=== PATIENT | male | born 1955 | race Caucasian/White ===

== ENCOUNTER 2024-06-28 00:35 | Day surgery (SDC) | payer BC, SELFPAY ==
[2024-06-21 10:41] VITALS: BMI 32.0
--- OUTSIDE RECORDS SUMMARY | 2024-06-28 00:38 | XMS_ITS | Clinical Summary ---
Author Organization [facility] Heriberto abundio Patino Address [address] [place] [address] Care Team Providers Care Credit Analyst Name Role Phone Unavailable Primary Care Provider Unavailabl e Allergies No known active allergies Medications ursodioL (ACTIGALL) 300 mg capsule 4 capsules po qday 01/23/2024 Active cholecalciferol , Vitamin D3, 50 mcg (2,000 unit) Tablet Take 2,000 Units by mouth daily. Active ascorbic acid (VITAMIN C) 500 mg Tablet, Chewable Take 500 mg by mouth daily. Active Active Problems No known active problems Encounters Date Type Department Care Team Description 06/25/2024 Abstract [facility] Oncology and Hematology [facility] [address] [place] [id number] Semaj Gaona MD 06/19/2024 External Device Data ST[facility] ABSTRACTION Provider, Abstract 06/19/2024 External Device Data [facility] ABSTRACTION Provider, Abstract 06/19/2024 External Device Data [facility] ABSTRACTION Provider, Abstract 06/12/2024 11:30 AM CDT Office Visit [facility] H[facility] [address] [place] [id number] Briseida Sepulveda MD Other secondary thrombocytopenia (Primary Dx) from Last 3 Months Family History Medical History Relation Name Comments No Known Problems Brother 1 No Known Problems Brother 2 No Known Problems Brother 3 No Known Problems Father No Known Problems Mother Cancer Sister 1 No Known Problems Sister 2 No Known Problems Sister 3 Relation Name Status Comments Brother 1 Brother 2 Alive Brother 3 Alive Father Mother Sister 1 Alive Sister 2 Alive Sister 3 Alive Social History Tobacco Use Types Packs/Day Years Used Date Smoking Tobacco: Never Smokeless Tobacco: Never Tobacco Cessation:Counseling Given: Not Answered Alcohol Use Standard Drinks/Week Comments Yes 0 (1 standard drink = 0.6 oz pur e alcohol) occasional Sex and Gender Information Value Date Recorded Sex Assigned at Not on file Legal Sex Male 9:53 AM CDT Gender Identity Not on file Sexual Orientation Not on file Last Filed Vital Signs Vital Sign Reading Time Taken Comments Blood Pressure 106/65 06/12/2024 11:29 AM CDT Pulse 63 06/12/2024 11:29 AM CDT Temperature 36.3 C (97.4 F) 06/12/2024 11:29 AM CDT Respiratory Rate 16 06/12/2024 11:2 9 AM CDT Oxygen Saturation 96% 06/12/2024 11: 29 AM CDT Inhaled Oxygen Concentration - - Weight 95.2 kg (209 lb 12.8 oz) 025 11:29 AM CDT Height 172.7 cm (5' 8 ) 06/12/2024 11:2 9 AM CDT Body Mass Index 31.9 06/12/2024 11:29 AM CDT Plan of Treatment Upcoming Encounters Date Type Department Care Team (Late st Contact Info) Description 12/11/2024 11:00 AM CDT Office Visit [facility] Oncology and Hematology [facility] [address] [facility] [address] [place] [address] Semaj Gaona MD [address] [place] [address] Health Maintenance Due Date Last Done Comments Pre-Diabetes and Diabetes Screening 1955 DTAP/TDAP/TD VACCINES (1 - Tdap) 01/13/1975 PNEUMOCOCCAL VACCINE 50+ YEA RS (1 of 2 - PCV) 01/13/1975 COLORECTAL SCREENING 01/13/2001 Colorectal Cancer Screening 01/13/2001 FIT-DNA Q 3 years 01/13/2001 FIT/FOBT Q 1 year 01/13/2001 Flex Sig/CT Colonography Q 5 years 01/13/2001 RSV VACCINE (60+ or ) (1 - Risk 60-74 years 1-dose series) 2016 INFLUENZA VACCINE (#1) 2023 ZOSTER VACCINE Completed 02/22/2019, 09/21/2018 Insurance BLUE [employer]/TRUE BLUE PPO
--- OUTSIDE RECORDS SUMMARY | 2024-06-28 00:38 | XMS_ITS | Clinical Summary ---
Author Organization [facility] Address [address] [place] [address] Care Team Providers Care Script Editor Name Role Phone Douglas Francois MD Primary Care Provider [phone] Source Comments [facility],non-owned Affiliates and Associated Physician Practices is amultiple site organization consisting of ambulatory clinics and hospital sitesin [place], [place], [place] and [place]. This disclosure is being madepursuant to the Care Everywhere program and may not contain all information available regarding this patient. 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 Gender Identity Not on file Sexual Orientation Not on file Plan of Treatment Health Maintenance Due Date Last Done Comments COLOGUARD (AGES 45-75) - COL ON CA SCREENING 1955 COLON MONITORING 1956 COLONOSCOPY - COLON CA SCREENING 1956 CT COLONOGRAPHY - COLON CA SCREENING 1956 Colorectal Cancer Screening 1956 FIT - COLON CA SCREENING 1956 FLEX SIG - COLON CA SCREENING 1956 LIPID TESTING 1956 HEPATITIS C SCREENING 01/09/1974 DTAP/TDAP/TD VACCINES (1 - Tdap) 01/13/1975 PNEUMOCOCCAL VACCINE 50+ (1 of 1 - PCV) 01/13/2006 ZOSTER VACCINE (1 of 2) 01/13/2006 HEPATITIS B VACCINE (2 of 3 - Risk 3-dose series) 07/27/2017 06/29/2017 COVID-19 VACCINE (1 - 2023-2 5 season) 2023 DEPRESSION SCREENING 02/15/2024 INFLUENZA VACCINE (Season Ended) 2024 Respiratory Syncytial Virus (RSV) Vaccine Pt: or over 60 yrs (1 - 1-dose 75+ series) 01/13/2031 HIB VACCINE Aged Out No longer eligi ble based on patient's age to complete this topic HPV VACCINE Aged Out No longer eligi ble based on patient's age to complete this topic MENINGOCOCCAL (Group B) VACC INE SHARED DECISION-MAKING Aged Out No longer eligibl e based on patient's age to complete this topic MENINGOCOCCAL GROUPS A/C/Y/W VACCINE Aged Out No longer eligible b ased on patient's age to complete this topic Insurance ANTHEM ANTHEM Care Teams Script Editor Relationship Specialty Start Date End Date Douglas Francois MD [address] [place] [address] PCP - General 04/06/13
--- OUTSIDE RECORDS SUMMARY | 2024-06-28 00:39 | XMS_ITS | Clinical Summary ---
Author Organization [facility] Address [address] [place] [address] Care Team Providers Care Associate Media Director Name Role Phone Roz Montiel MD Primary Care Provide r Allergies Active Allergy Reactions Criticality Noted Date Comments No Known Allergies Other (See comments) Low Reaction: Medications calcium carbonate-vitami n D3 1,250mg (500mg elemental) - 5 mcg (200 units) per tablet pt doesnt know dosage of med, takes 1 tab daily Active cholecalciferol (VITAMIN D-3) 2,000 unit tablet pt doesnt know med dosage, states that he takes 1 tab daily Active cyclobenzaprine (FLEXERIL) 10 mg tablet [address] (VOLTAREN) 75 mg EC tablet 8 Active ascorbic acid (ascorbic acid with charles hips) 500 mg tablet,chewable 1 tablet/chew tab (500 mg total) Active biotin 5,000 mcg tablet,disintegr ating 1 tablet Active ursodioL (ACTIGALL) 300 mg capsuleIndicatio ns: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 [facility] [address] [place] [address] [place] [address] Melanie Hill CMA 04/11/2024 Telephone [facility] Gastroenterology [address] [facility] [address] [place] [address] [place] [id number] Melanie Hill CMA from Last 3 Months Immunizations Immunization Administration Dates Next Due Hep B Vaccine 06/29/2017,01/06/2017,12/01/2016 ZOSTER Recombinant 02/22/2019,09/21/2018 Surgical History Surgery Date Site/Laterality Comments SC COLONOSCOPY FLX DX W/SASHA J SPEC WHEN PFRMD Colonoscopy (Fiberoptic) - (Added by TW Conv) Medical History Medical History Date Comments Personal history of diseases of skin or subcutaneous tissue History of psoriasis - (Adde d by TW Conv) Personal history of other in fectious and parasitic diseases History of hepatitis A - (Ad ded by TW Conv) Family History Medical History Relation Name Comments Lung cancer Father Family history of lung cancer - (Added by TW Conv) Colon cancer Mother Family history of colon cancer - (Added by TW Conv) Lung cancer Mother Family history of lung cancer - (Added by TW Conv) Asthma Sister 1 Family history of asthma - (Added by TW Conv) Autoimmune disease Sister 2 Family hi story of autoimmune disorder - (Added by TW Conv) Relation Name Status Comments Father Mother Sister 1 Sister 2 Social History Tobacco Use Types Packs/Day Years Used Date Smoking Tobacco: Never Smokeless Tobacco: Never Tobacco Cessation:Counseling Given: Not Answered Sex and Gender Information Value Date Recorded Sex Assigned at Not on file Legal Sex Male 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 Gender Identity Not on file Sexual Orientation Not on file Obstetrics History Last Filed Vital Signs Vital Sign Reading Time Taken Comments Blood Pressure 121/80 10/20/2023 11:22 AM CDT Pulse 59 10/20/2023 11:22 AM CDT Temperature 36.6 C (97.9 F) 10/20/2023 11:22 AM CDT Respiratory Rate - - Oxygen Saturation 97% 10/21/2022 10:07 AM CDT Inhaled Oxygen Concentration - - Weight 96.9 kg (213 lb 9.6 oz) 10/20/2023 11:22 AM CDT Height 172.7 cm (5' 8 ) 10/20/2023 11:22 AM CDT Body Mass Index 32.48 10/20/2023 11:22 AM CDT Plan of Treatment Health Maintenance Due Date Last Done Comments Colon Cancer Screening-Colonoscopy 1955 Depression Screening 1956 Fall Risk Assessment 1955 Hepatitis C Screening 1955 Prostate Cancer Screening-PSA 1956 DTaP/Tdap/Td Vaccine (1 - Tdap) 01/13/1967 Pneumococcal vaccine 65+ (1 of 2 - PCV) 01/13/1975 Well Visit 65+ 01/13/2021 Influenza Vaccine (Season Ended) 2024 Zoster Vaccine Completed 02/22/2019, 09/21/2018 Insurance [place] [employer] [place] [employer] [place] [facility] Address: [address] [address] [place] [address] [facility] Care Teams Associate Media Director Relationship Specialty Start Date End Date Roz Montiel MD [phone] [address] PCP - General Internal Medicine 10/20/23
--- OUTSIDE RECORDS SUMMARY | 2024-06-28 00:39 | XMS_ITS | Data Portability ---
Author Organization [place] - [facility] [employer], Main Office Address [address] [place] [address] Care Team Providers Care I O Psychologist Name Role Phone NIKKI KUO Primary Care Provider NIKKI KUO Referring Provider [phone] Assessment Encounter Date Assessment Date Assessment LastModified by Organization Details LastModified Time 11/08/2023 11/08/2023 10/20/2023: Dr Treviño GI PLT 146 Not available 11/08/2023 16:41:33 03/13/2024 03/13/2024 10/20/2023: Dr Treviño GI PLT 146 11/16/2023: PSA 3.12 Gluc 101 PLT 131 Not available 03/13/2024 11:01:03 06/12/2024 06/12/2024 10/20/2023: Dr Treviño GI PLT 146 11/16/2023: PSA 3.12 Gluc 101 PLT 131 Not available 06/12/2024 10:50:06 Plan of Treatment Reminders Order Date Submit Date Provider Last Modified By Organization Details Last Modified Time Details Appointments Any 15 2024 09:30A eGovanna palomino MD Not available Not available Not available Lab lipid panel, serum 2024 025 [email or web address] [facility] (Lab), [address] [place], [address], 06/21/2024 14:17:04 CBC w/ auto diff [email or web address] [place] [address] (Lab), [address] [place], [address], 06/21/2024 14:17:13 CMP, serum or plasma [address] (Lab), [address] [place], [address], 06/21/2024 14:17:22 CMP, serum or plasma [address] (Lab), [address] [place], [address], 06/21/2024 14:17:31 vitamin D, 25-hydrox y, total, serum [address] (Lab), [address] [place], [address], 06/21/2024 14:17:41 vitamin B12 + folate, serum or blood [address] (Lab), [address] [place], [address], 06/21/2024 14:17:50 lipid panel, serum 2024 025 [facility] (Lab), [address] [place], [address], 03/21/2024 16:41:59 CBC w/ auto diff 2024 025 [facility] (Lab), [address] [place], [address], 03/21/2024 17:03:37 CMP, serum or plasma 2024 025 [facility] (Lab), [address] [place], [address], 03/21/2024 16:42:01 CMP, serum or plasma [address] (Lab), [address] [place], [address], 04/05/2024 14:26:27 PSA, total, serum or plasma 2024 025 [facility] (Lab), [address] [place], [address], 03/21/2024 17:20:03 vitamin D, 25-hydrox y, total, serum [address] (Lab), [address] [place], [address], 04/05/2024 14:26:27 vitamin B12 + folate, serum or blood [address] (Lab), [address] [place], [address], 04/05/2024 14:26:28 lipid panel, serum 2023 024 [facility] (Lab), [address] [place], [address], 11/24/2023 16:56:59 CBC w/ auto diff 2023 024 [facility] (Lab), [address] [place], [address], 11/24/2023 16:23:01 CMP, serum or plasma [address] (Lab), [address] [place], [address], 11/30/2023 08:23:16 CMP, serum or plasma 2023 024 [facility] (Lab), [address] [place], [address], 11/24/2023 16:24:20 PSA, total, serum or plasma 2023 024 [facility] (Lab), [address] [place], [address], 11/24/2023 16:57:25 vitamin D, 25-hydrox y, total, serum [address] (Lab), [address] [place], [address], 11/30/2023 08:23:17 vitamin B12 + folate, serum or blood [address] (Lab), [address] [place], [address], 11/30/2023 08:23:17 Referral urologist referral - Please call patient to schedule an appointme nt. Thank you. 2024 025 CRISTINA Caballero MD, [address] [facility] [address], [place], [address], 06/19/2024 10:08:17 hematolog ist referral - Please call patient to schedule an appointme nt. Thank you. 2024 025 CRISTINA Gaona MD, [address], [place], [address], 06/19/2024 11:24:06 dermatolo gist referral - Please call patient to schedule an appointme nt. Thank you. 2024 025 [facility], [address] [place] [address], [address], 06/19/2024 10:31:00 hematolog ist referral - Please call patient to schedule an appointme nt. Thank you. 2024 025 [email or web address] Gaona MD, [address], [place], [address], 05/22/2024 08:45:54 cardiolog ist referral - Please call patient to schedule an appointme nt. Thank you. 2024 025 [place], [address], [address], [place], [address], 04/23/2024 20:13:58 dermatolo gist referral - Please call patient to schedule an appointme nt. Thank you. 2024 025 [email or web address] [address] [facility], [facility] [place], [address], 05/22/2024 08:41:08 cardiolog ist referral - Please call patient to schedule. 2023 024 [place], [address], [address], [place], [address], 11/10/2023 16:23:09 Procedures colonosco py screening (PROC) - Please call patient to schedule an appointme nt. Thank you. 2024 025 [facility], [address], [place], [place], [address], 06/22/2024 16:06:06 upper endoscopy procedure (EGD) (PROC) - Please call patient to schedule an appointme nt. Thank you. 2024 025 [facility], [address], [place], [address], 06/22/2024 16:05:19 colonosco py screening (PROC) - Please call patient to schedule an appointme nt. Thank you. 2024 025 [facility] Trung Aaron DO, [address], [address], [place], [address], 05/02/2024 12:55:26 upper endoscopy procedure (EGD) (PROC) 2024 025 [facility] Trung Gregorio Galen MATIAS, [address], [place], [address], 04/23/2024 17:12:10 colonosco py screening (PROC) 2023 024 [email or web address] [facility], [address], [place], [address], 05/07/2024 08:43:27 upper endoscopy procedure (EGD) (PROC) 2023 024 [email or web address] [facility], [address], [place], [address], 06/04/2024 08:45:27 Surgeries None recorded. Imaging DEXA, axial skeleton [address] ([facility]), [address] [place], [address], 06/12/2024 18:10:00 DEXA, axial skeleton [address] ([facility]), [address] [place], [address], 03/13/2024 12:51:45 DEXA, axial skeleton 2023 024 [facility] ([facility]), [address] [place], [address], 11/16/2023 11:31:51 Medication Orders None recorded. Patient TargetsNo targets recorded. Patient Instructions Encounter Date Encounter Id Patient Instructions Last Modified By Organization Details Last Modified Time 04/11/2024 [id number] 1. We will send his urine off today for Exosome test and once the results come back then we will arrange either office visit or telehealth discuss results 2. Most likely he will not need a prostate biopsy [email or web address] Not available 04/11/2024 12:41:56 Reason for Referral Anatomic Pathology Manager Referral for Sc reening for cardiovascular system disease Please call patient to schedule. Referring Physician: Nikki Kuo Internal Medicine, Encounter Date: 11/08/2023 Anatomic Pathology Manager Referral for Sc reening for cardiovascular system disease Please call patient to schedule an appointment. Thank you. Referring Physician: Nikki Kuo Internal Medicine, Encounter Date: 03/13/2024 Director Veterinary Referral for S kin lesion Please call patient to schedule an appointment. Thank you. Referring Physician: Nikki Kuo Internal Medicine, Encounter Date: 03/13/2024 Please call patient to sched ule an appointment. Thank you. Referring Physician: Nikki Kuo Internal Medicine, Encounter Date: 03/13/2024 Director Veterinary Referral for S kin lesion Please call patient to schedule an appointment. Thank you. Referring Physician: Nikki Kuo Internal Medicine, Encounter Date: 06/12/2024 Please call patient to sched ule an appointment. Thank you. Referring Physician: Nikki Kuo Internal Medicine, Encounter Date: 06/12/2024 Urologist Referral for Prost ate specific antigen above reference range Please call patient to schedule an appointment. Thank you. Referring Physician: Nikki Kuo Internal Medicine, Encounter Date: 06/12/2024 Results Created Date Observation Date Name Description Value Unit Range Abnormal Flag Note LastModifiedBy Organization Detail LastModifiedTime 01/20/20 22 01/19/2022 LIPID PANEL cholesterol 152 mg/dL 140-19 9 NIH ADELSO NSUS RECOM MENDA TION FOR SUMIT STERO L: ADULT CHILD LOW RISK: <200 <170 BORDE RLINE : <200- 239 ----- HIGH RISK: >240 >200 Not Available [facility] (Lab) [address] [place], [address], 01/19/2022 21:43:05 01/20/20 22 01/19/2022 LIPID PANEL triglyceride s 69 mg/dL 0-150 NIH ADELSO NSUS REPOR T RECOM MENDA TION FOR TRIGL YCERI GORAN: ADULT CHILD LOW RISK: <150 ----- BODER LINE: 150-1 99 ----- HIGH RISK: >200 ----- Not Available [facility] (Lab) [address] [place], [address], 01/19/2022 21:43:05 01/20/20 22 01/19/2022 LIPID PANEL HDL cholesterol 44 mg/dL 40- Not Available [facility] (Lab) [address] [place], [address], 01/19/2022 21:43:05 01/20/20 22 01/19/2022 LIPID PANEL LDL cholesterol, calculated 94 mg/dL 0-130 NIH ADELSO NSUS REPOR T RECOM MENDA TIONS FOR LDL: ADULT CHILD LOW RISK <130 <110 (OPTI MAL LDL) <100 ----- BORDE RLINE : 130-1 59 ----- HIGH RISK: >160 >130 A TRIGL YCERI DE RESUL T >400 INVAL IDATE S THE CALCU LATIO N FOR LDL FRACT IONAT ION - THE LDL RESUL T WILL NOT BE REPOR CHIDI. Not Available [facility] (Lab) [address] [place], [address], 01/19/2022 21:43:05 01/20/20 22 01/19/2022 BASIC METAB OLIC PANEL sodium 140 mmol/ L 137-14 5 Not Available [facility] (Lab) [address] [place], [address], 01/19/2022 21:43:04 01/20/20 22 01/19/2022 BASIC METAB OLIC PANEL potassium 3.8 mmol/ L 3.5-5. 1 Not Available [facility] (Lab) [address] [place], [address], 01/19/2022 21:43:04 01/20/20 22 01/19/2022 BASIC METAB OLIC PANEL chloride 104 mmol/ L 98-107 Not Available [facility] (Lab) [address] [place], [address], 01/19/2022 21:43:04 01/20/20 22 01/19/2022 BASIC METAB OLIC PANEL carbon dioxide 29 mmol/ L 22-30 Not Available [facility] (Lab) [address] [place], [address], 01/19/2022 21:43:04 01/20/20 22 01/19/2022 BASIC METAB OLIC PANEL anion gap 10.8 mmol/ L 14-22 low Not Available [facility] (Lab) [address] [place] [address] [place], [address], 01/19/2022 21:43:04 01/20/20 22 01/19/2022 BASIC METAB OLIC PANEL glucose 118 mg/dL 70-99 high Not Available [facility] (Lab) [address] [place], [address], 01/19/2022 21:43:04 01/20/20 22 01/19/2022 BASIC METAB OLIC PANEL BUN 19 mg/dL 8-19 Not Available [facility] (Lab) [address] [place], [address], 01/19/2022 21:43:04 01/20/20 22 01/19/2022 BASIC METAB OLIC PANEL creatinine 0.96 mg/dL 0.66-1 .25 Not Available [facility] (Lab) [address] [place] [address], [address], 01/19/2022 21:43:04 01/20/20 22 01/19/2022 BASIC METAB OLIC PANEL GFR >60 Refer ence Range : [place] ge GFR Healt hy Adult : >60 mL/mi n/1.7 3 m2 Chron ic Kidne y Disea se: 15-60 mL/mi n/1.7 3 m2 Kidne y Failu re: <15/m L/min /1.73 m2 www.n iddk. nih.g ov The MDRD study equat ion has not been valid ated in child jethro <18 years of age; pregn ant women ; the elder ly >85 years of age; or in some racia l or ethni c subgr oups, such as Hispa nics. Outsi de the valid ated kenneth eters , estim ated GFR is less accur ate, requi ring clini camilla judgm ent on a case- by-ca se basis . Clini camilla inter preta tion for other races and ages must be made by the clini sade. The MDRD study equat ion has not been valid ated for the evalu ation of serum creat inine relat ed to nutri humberto l statu s or medic ation usage . For perso ns <18 years of age, a pedia tric GFR calcu lator is avail able on the [facility] websi te: https :[email or web address] [email or web address] [email or web address].o rg/pr ofess ional s/kdo qi/gf r_cal culat or Not Available [facility] (Lab) [address] [place], [address], 01/19/2022 21:43:04 01/20/20 22 01/19/2022 BASIC METAB OLIC PANEL calcium 8.9 mg/dL 8.4-10 .2 Not Available [facility] (Lab) [address] [place], [address], 01/19/2022 21:43:04 11/16/19 24 11/16/2023 CBC/C OMPLE TE BLD COUNT W/DIF F white blood cells 5.8 x10'3 /uL 4.2-10 .8 Not Available [facility] (Lab) [address] [place], [address], 11/16/2023 11:27:57 11/16/19 24 11/16/2023 CBC/C OMPLE TE BLD COUNT W/DIF F red blood cells 4.39 x10'6 /uL 4.10-5 .80 Not Available [facility] (Lab) [address] [place], [address], 11/16/2023 11:27:57 11/16/1911/16/2023 CBC/C OMPLE TE BLD COUNT W/DIF F hemoglobin 14.3 g/dL 13.2-1 7.0 Not Available [facility] (Lab) [address] [facility] [place], [address], 11/16/2023 11:27:57 11/16/1911/16/2023 CBC/C OMPLE TE BLD COUNT W/DIF F hematocrit 42.4 % 39.3-5 0.0 Not Available [facility] (Lab) [address] [place], [address], 11/16/2023 11:27:57 11/16/1911/16/2023 CBC/C OMPLE TE BLD COUNT W/DIF F mean red cell volume 96.6 fL 80.0-9 7.0 Not Available [facility] (Lab) [address] [place], [address], 11/16/2023 11:27:57 11/16/1911/16/2023 CBC/C OMPLE TE BLD COUNT W/DIF F mean red cell hemoglobin 32.6 pg 27.0-3 3.0 Not Available [facility] (Lab) [address] [place], [address], 11/16/2023 11:27:57 11/16/1911/16/2023 CBC/C OMPLE TE BLD COUNT W/DIF F mean RBC HGB concentratio n 33.7 g/dL 31.0-3 6.0 Not Available [facility] (Lab) [address] [place], [address], 11/16/2023 11:27:57 11/16/1911/16/2023 CBC/C OMPLE TE BLD COUNT W/DIF F red cell distribution width 12.1 % 11.8-1 5.5 Not Available [facility] (Lab) [address] [place], [address], 11/16/2023 11:27:57 11/16/1911/16/2023 CBC/C OMPLE TE BLD COUNT W/DIF F platelets 131 x10'3 /uL 150-40 0 low Not Available [facility] (Lab) [address] [place], [address], 11/16/2023 11:27:57 11/16/1911/16/2023 CBC/C OMPLE TE BLD COUNT W/DIF F mean platelet volume 9.8 fL 9.0-12 .4 Not Available [facility] (Lab) [address] [place], [address], 11/16/2023 11:27:57 11/16/1911/16/2023 CBC/C OMPLE TE BLD COUNT W/DIF F neutrophils 67.4 % 39.0-7 2.0 Not Available [facility] (Lab) [address] [place], [address], 11/16/2023 11:27:57 11/16/1911/16/2023 CBC/C OMPLE TE BLD COUNT W/DIF F lymphocytes 19.7 % 16.0-4 7.0 Not Available [facility] (Lab) [address] [place], [address], 11/16/2023 11:27:57 11/16/1911/16/2023 CBC/C OMPLE TE BLD COUNT W/DIF F monocytes 9.6 % 5.0-12 .0 Not Available [facility] (Lab) [address] [place], [address], 11/16/2023 11:27:57 11/16/1911/16/2023 CBC/C OMPLE TE BLD COUNT W/DIF F eosinophils 2.7 % 1.0-7. 0 Not Available [facility] (Lab) [address] [place], [address], 11/16/2023 11:27:57 11/16/1911/16/2023 CBC/C OMPLE TE BLD COUNT W/DIF F basophils 0.3 % 0.0-2. 0 Not Available [facility] (Lab) [address] [place], [address], 11/16/2023 11:27:57 11/16/1911/16/2023 CBC/C OMPLE TE BLD COUNT W/DIF F immature granulocytes 0.3 % 0.00-0 .50 Not Available [facility] (Lab) [address] [place], [address], 11/16/2023 11:27:57 11/16/1911/16/2023 CBC/C OMPLE TE BLD COUNT W/DIF F neutrophils, absolute count 3.93 x10'3 /uL 1.5-8. 0 Not Available [facility] (Lab) [address] [place], [address], 11/16/2023 11:27:57 11/16/1911/16/2023 CBC/C OMPLE TE BLD COUNT W/DIF F lymphocytes, absolute count 1.15 x10'3 /uL 1.07-3 .43 Not Available [facility] (Lab) [address] [place], [address], 11/16/2023 11:27:57 11/16/1911/16/2023 CBC/C OMPLE TE BLD COUNT W/DIF F monocytes, absolute count 0.56 x10'3 /uL 0.29-0 .99 Not Available [facility] (Lab) [address] [place], [address], 11/16/2023 11:27:57 11/16/1911/16/2023 CBC/C OMPLE TE BLD COUNT W/DIF F eosinophils, absolute count 0.16 x10'3 /uL 0.02-0 .53 Not Available [facility] (Lab) [address] [place], [address], 11/16/2023 11:27:57 11/16/1911/16/2023 CBC/C OMPLE TE BLD COUNT W/DIF F basophils, absolute count 0.02 x10'3 /uL 0.01-0 .08 Not Available [facility] (Lab) [address] [place], [address], 11/16/2023 11:27:57 11/16/1911/16/2023 CBC/C OMPLE TE BLD COUNT W/DIF F immature granulocytes ,absolute 0.02 x10'3 /uL 0.00-0 .05 Not Available [facility] (Lab) [address] [place], [address], 11/16/2023 11:27:57 11/16/1911/16/2023 CBC/C OMPLE TE BLD COUNT W/DIF F nucleated red blood cells 0.0 % -0 Not Available [facility] (Lab) [address] [place], [address], 11/16/2023 11:27:57 11/16/1911/16/2023 CBC/C OMPLE TE BLD COUNT W/DIF F NRBC# 0.00 x10'3 /uL Not Available [facility] (Lab) [address] [place], [address], 11/16/2023 11:27:57 11/16/1911/16/2023 LIPID PANEL cholesterol 136 mg/dL 140-19 9 low NIH ADELSO NSUS RECOM MENDA TION FOR SUMIT STERO L: ADULT CHILD LOW RISK: <200 <170 BORDE RLINE : <200- 239 ----- HIGH RISK: >240 >200 Not Available [facility] (Lab) [address] [place], [address], 11/16/2023 11:35:37 11/16/1911/16/2023 LIPID PANEL triglyceride s 93 mg/dL 0-150 NIH ADELSO NSUS REPOR T RECOM MENDA TION FOR TRIGL YCERI GORAN: ADULT CHILD LOW RISK: <150 ----- BODER LINE: 150-1 99 ----- HIGH RISK: >200 ----- Not Available [facility] (Lab) [address] [place], [address], 11/16/2023 11:35:37 11/16/1911/16/2023 LIPID PANEL HDL cholesterol 42 mg/dL 40- Not Available [facility] (Lab) [address] [place], [address], 11/16/2023 11:35:37 11/16/1911/16/2023 LIPID PANEL LDL cholesterol, calculated 75 mg/dL 0-130 NIH ADELSO NSUS REPOR T RECOM MENDA TIONS FOR LDL: ADULT CHILD LOW RISK <130 <110 (OPTI MAL LDL) <100 ----- BORDE RLINE : 130-1 59 ----- HIGH RISK: >160 >130 A TRIGL YCERI DE RESUL T >400 INVAL IDATE S THE CALCU LATIO N FOR LDL FRACT IONAT ION - THE LDL RESUL T WILL NOT BE REPOR CHIDI. Not Available [facility] (Lab) [address] [place], [address], 11/16/2023 11:35:37 11/16/1911/16/2023 COMPR EHENS FIGUEROA METAB OLIC PANEL sodium 137 mmol/ L 137-14 5 Not Available [facility] (Lab) [address] [place], [address], 11/16/2023 11:35:55 11/16/1911/16/2023 COMPR EHENS FIGUEROA METAB OLIC PANEL potassium 4.3 mmol/ L 3.5-5. 1 Not Available [facility] (Lab) [address] [place], [address], 11/16/2023 11:35:55 11/16/19 24 11/16/2023 COMPR EHENS FIGUEROA METAB OLIC PANEL chloride 106 mmol/ L 98-107 Not Available [facility] (Lab) [address] [place], [address], 11/16/2023 11:35:55 11/16/19 24 11/16/2023 COMPR EHENS FIGUEROA METAB OLIC PANEL carbon dioxide 29 mmol/ L 22-30 Not Available [facility] (Lab) [address] [place], [address], 11/16/2023 11:35:55 11/16/19 24 11/16/2023 COMPR EHENS FIGUEROA METAB OLIC PANEL anion gap 6.3 mmol/ L 14-22 low Not Available [facility] (Lab) [address] [place], [address], 11/16/2023 11:35:55 11/16/1911/16/2023 COMPR EHENS FIGUEROA METAB OLIC PANEL glucose 101 mg/dL 70-99 high Not Available [facility] (Lab) [address] [place], [address], 11/16/2023 11:35:55 11/16/1911/16/2023 COMPR EHENS FIGUEROA METAB OLIC PANEL BUN 19 mg/dL 8-19 Not Available [facility] (Lab) [address] [place], [address], 11/16/2023 11:35:55 11/16/19 24 11/16/2023 COMPR EHENS FIGUEROA METAB OLIC PANEL creatinine 1.14 mg/dL 0.66-1 .25 Not Available [facility] (Lab) [address] [place], [address], 11/16/2023 11:35:55 11/16/1911/16/2023 COMPR EHENS FIGUEROA METAB OLIC PANEL GFR >60 Refer ence Range : [place] GFR Healt hy Adult : >60 mL/mi n/1.7 3 m2 Chron ic Kidne y Disea se: 15-60 mL/mi n/1.7 3 m2 Kidne y Failu re: <15/m L/min /1.73 m2 www.n iddk. nih.g ov The MDRD study equat ion has not been valid ated in child jethro <18 years of age; pregn ant women ; the elder ly >85 years of age; or in some racia l or ethni c subgr oups, such as Hispa nics. Outsi de the valid ated kenneth eters , estim ated GFR is less accur ate, requi ring clini camilla judgm ent on a case- by-ca se basis . Clini camilla inter preta tion for other races and ages must be made by the clini sade. The MDRD study equat ion has not been valid ated for the evalu ation of serum creat inine relat ed to nutri humberto l statu s or medic ation usage . For perso ns <18 years of age, a pedia tric GFR calcu lator is avail able on the [facility] websi te: https :[email or web address] [email or web address] [email or web address] rg/pr ofess ional s/kdo qi/gf r_cal culat or Not Available [facility] (Lab) [address] [place], [address], 11/16/2023 11:35:55 11/16/1911/16/2023 COMPR EHENS FIGUEROA METAB OLIC PANEL alkaline phosphatase 93 U/L 38-126 Not Available [facility] (Lab) [address] [place], [address], 11/16/2023 11:35:55 11/16/19 24 11/16/2023 COMPR EHENS FIGUEROA METAB OLIC PANEL alanine aminotransfe rase 21 U/L 0-50 Not Available [facility] (Lab) [address] [place], [address], 11/16/2023 11:35:55 11/16/1911/16/2023 COMPR EHENS FIGUEROA METAB OLIC PANEL aspartate aminotransfe rase 29 U/L 15-46 Not Available [facility] (Lab) [address] [place], [address], 11/16/2023 11:35:55 11/16/1911/16/2023 COMPR EHENS FIGUEROA METAB OLIC PANEL bilirubin, total 0.70 mg/dL 0.20-1 .30 Not Available [facility] (Lab) [address] [place], [address], 11/16/2023 11:35:55 11/16/19 24 11/16/2023 COMPR EHENS FIGUEROA METAB OLIC PANEL calcium 9.5 mg/dL 8.4-10 .2 Not Available [facility] (Lab) [address] [place], [address], 11/16/2023 11:35:55 11/16/1911/16/2023 COMPR EHENS FIGUEROA METAB OLIC PANEL total protein 6.5 g/dL 6.3-8. 2 Not Available [facility] (Lab) [address] [place], [address], 11/16/2023 11:35:55 11/16/1911/16/2023 COMPR EHENS FIGUEROA METAB OLIC PANEL albumin 3.9 g/dL 3.0-4. 4 Not Available [facility] (Lab) [address] [place], [address], 11/16/2023 11:35:55 11/16/19 24 11/16/2023 COMPR EHENS FIGUEROA METAB OLIC PANEL globulin 2.6 g/dL 2.6-4. 2 Not Available [facility] (Lab) [address] [place], [address], 11/16/2023 11:35:55 11/16/1911/16/2023 COMPR EHENS FIGUEROA METAB OLIC PANEL A/G ratio 1.5 ratio 1.0-2. 0 Not Available [facility] (Lab) [address] [place], [address], 11/16/2023 11:35:55 11/16/1911/16/2023 VITAM IN D 25-HY DROXY [id number] 75.9 NG/mL 30-100 Vitam in D Statu s: Defic ient: <20 ng/mL Insuf ficie nt: 20-29 ng/mL Suffi cient : 30-10 0 ng/mL Not Available [facility] (Lab) [address] [place], [address], 11/16/2023 11:46:47 11/16/1911/16/2023 PSA SCREE N PSA medicare screen 3.12 NG/mL 0.00-4 .00 Not Available [facility] [facility] ([facility]) [address] [place], [address], 11/16/2023 12:09:44 11/16/19 24 11/16/2023 VITAM IN B12 (NEVA OPAL ) vb12 362 pg/mL 239-93 1 Not Available [facility] ([facility]) [address] [place], [address], 11/16/2023 12:35:40 11/16/19 24 11/16/2023 FOLAT E, SERUM /PLAS MA folate >20.0 NG/mL 2.76-2 0.0 Not Available [facility] (Lab) [address] [place], [address], 11/16/2023 12:35:44 03/21/19 25 03/21/2024 LIPID PANEL cholesterol 151 mg/dL 140-19 9 NIH ADELSO NSUS RECOM MENDA TION FOR SUMIT STERO L: ADULT CHILD LOW RISK: <200 <170 BORDE RLINE : <200- 239 ----- HIGH RISK: >240 >200 Not Available [facility] (Lab) [address] [place], [address], 03/21/2024 16:41:59 03/21/19 25 03/21/2024 LIPID PANEL triglyceride s 83 mg/dL 0-150 NIH ADELSO NSUS REPOR T RECOM MENDA TION FOR TRIGL YCERI GORAN: ADULT CHILD LOW RISK: <150 ----- BODER LINE: 150-1 99 ----- HIGH RISK: >200 ----- Not Available [facility] (Lab) [address] [place], [address], 03/21/2024 16:41:59 03/21/19 25 03/21/2024 LIPID PANEL HDL cholesterol 42 mg/dL 40- Not Available [facility] (Lab) [address] [place], [address], 03/21/2024 16:41:59 03/21/19 25 03/21/2024 LIPID PANEL LDL cholesterol, calculated 92 mg/dL 0-130 NIH ADELSO NSUS REPOR T RECOM MENDA TIONS FOR LDL: ADULT CHILD LOW RISK <130 <110 (OPTI MAL LDL) <100 ----- BORDE RLINE : 130-1 59 ----- HIGH RISK: >160 >130 A TRIGL YCERI DE RESUL T >400 INVAL IDATE S THE CALCU LATIO N FOR LDL FRACT IONAT ION - THE [id number]|2024-06-28 13:13:00|2024-06-28 13:13:00|P.PNAN_ITS|SEN|Health Information Management|[id number]|"Anes - Initial Pre Proc Eval Procedure: Operation Date: 06/28/24 14:00 Proposed Procedures p Colonoscopy - Antolin Grady MD s Esophagogastroduodenoscopy - Antolin Grady MD Date/Time: 06/28/24 13:13 Surgeon: Antolin Grady MD Pre Op Diagnosis: Primary biliary cirrhosis, Screening Patient Data Age: 69 Gender: M Height: 1.73 m Weight: 91.7 kg Last Vital Signs Temp 36.6 C 06/28/24 12:44 Pulse 76 06/28/24 12:44 Resp 20 06/28/24 12:44 BP 124/81 06/28/24 12:44 Pulse Ox 94 06/28/24 12:44 O2 Del Method Room Air 06/28/24 12:44 Allergies Allergy/AdvReac Type Severity Reaction Status Date / Time No Known Allergies Allergy Verified 06/28/24 12:49 Home Medications Medication Instructions Recorded Confirmed Type ascorbic acid (vitamin C) 500 mg 500 mg PO DAILY 06/21/24 06/28/24 History tablet (Vitamin C) cholecalciferol (vitamin D3) 25 1,000 unit PO DAILY 06/21/24 06/28/24 History mcg (1,000 unit) capsule (Vitamin D3) ursodiol 300 mg capsule See Rx Instructions PO DAILY 06/21/24 06/28/24 History Patient hx anesthesia problems: none Family hx anesthesia problems: none Results Review: All pre-operative results and documents have been reviewed as part of the pre- operative evaluation. [facility] Past Medical History Medical History (Updated 06/28/24 @ 13:16 by Ry Jamil MD) Obesity Primary biliary cirrhosis Social History Social History Smoking status: Never smoker Alcohol intake: current Drinks per week: 1 Alcohol use details: WHISKEY/SCOTCH ONCE WEEKLY Substance use: never Living arrangements: alone Spiritual care concerns: No Anes - Eval Final PreProcedure Day of Procedure 06/28/24 13:13 Patient weight: obese Heart: regular rate and rhythm Lungs: clear to auscultation Airway: Mallampati scale class II Neurological: alert and oriented Last oral intake: >/= 8 hours ASA classification: III Emergent: no Anesthetic plan: proceed Anesthesia type and monitoring: general GIVS and standard monitoring Results Review: All pre-operative results and documents have been reviewed as part of the pre- operative evaluation. Informed Consent: The patient's anesthetic plan and its attendant risks and benefits were discussed with the patient/family/POA. Questions were solicited and answers provided to the satisfaction of the patient/family/POA. "
--- OUTSIDE RECORDS SUMMARY | 2024-06-28 00:39 | XMS_ITS | Clinical Summary ---
Author Organization [facility] Address [address] [place] [address] Phone Care Team Providers Care Assistant Activities Director Name Role Phone Olga Sheppard MD Primary Care Provider + Allergies No known active allergies Medications URSODIOL PO Take 30 mg by mouth. 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 Gender Identity Not on file Sexual Orientation Not on file Last Filed Vital Signs Vital Sign Reading Time Taken Comments Blood Pressure 120/66 04/21/2022 12:50 PM STOCK MIXER Pulse 60 04/21/2022 12:50 PM STOCK MIXER Temperature 36.4 C (97.5 F) 04/21/2022 12:50 PM STOCK MIXER Respiratory Rate 19 04/21/2022 12:50 PM STOCK MIXER Oxygen Saturation 99% 04/21/2022 12:50 PM STOCK MIXER Inhaled Oxygen Concentration - - Weight 90.7 kg (200 lb) 04/21/2022 12:50 PM STOCK MIXER Height 172.7 cm (5' 8 ) 04/21/2022 12:50 PM STOCK MIXER Body Mass Index 30.41 04/21/2022 12:50 PM STOCK MIXER Plan of Treatment Not on file [facility] Care Teams Assistant Activities Director Relationship Specialty Start Date End Date Olga Sheppard MD [address] [place] [id number] PCP - General Family Medicine 04/21/22
--- OUTSIDE RECORDS SUMMARY | 2024-06-28 00:39 | XMS_ITS | Referral Summary ---
Author Organization [facility] Address [address] [place] [address] Care Team Providers Care Delivery Driver Assistant Name Role Phone Roz Montiel MD Primary Care Provide r Encounters Date Type Department Care Team Description 04/11/2024 Telephone [facility] Gastroenterology [address] [facility] [address]th [place] [address] [place] [id number] Melanie Hill CMA 04/11/2024 Telephone [facility] Gastroenterology [address] [facility] 12th [place] [address] [place] [phone] Melanie Hill CMA from Last 3 Months Allergies Active Allergy Reactions Criticality Noted Date [...] Active Active Problems No known active problems Immunizations Immunization Administration Dates Next Due Hep B Vaccine 06/29/2017,01/06/2017,12/01/2016 ZOSTER Recombinant 02/22/2019,09/21/2018 Social History Tobacco Use Types Packs/Day Years Used Date Smoking Tobacco: Never Smokeless Tobacco: Never Tobacco Cessation:Counseling Given: Not Answered Sex and Gender Information Value Date Recorded Sex Assigned at Not on file 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
[2024-06-28 12:44] VITALS: BP 124/81; PULSE 76; RESP 20; TEMP 36.6; O2SAT 94; BMI 30.7
[2024-06-28] MEDS: LACTATED RINGERS 1,000 ML 150 ML IV CONT (13:05)
--- NOTE | 2024-06-28 13:13 | WPDANESEPPF ---
Anes - Initial Pre Proc Eval Procedure: Operation Date: 06/28/24 14:00 Proposed Procedures p Colonoscopy - Antolin Grady MD s Esophagogastroduodenoscopy - Antolin Grady MD Date/Time: 06/28/24 13:13 Surgeon: Antolin Grady MD Pre Op Diagnosis: Primary biliary cirrhosis, Screening Patient Data Age: 69 Gender: M Height: 1.73 m Weight: 91.7 kg Last Vital Signs Temp 36.6 C 06/28/24 12:44 Pulse 76 06/28/24 12:44 Resp 20 06/28/24 12:44 BP 124/81 06/28/24 12:44 Pulse Ox 94 06/28/24 12:44 O2 Del Method Room Air 06/28/24 12:44 Allergies Allergy/AdvReac Type Severity Reaction Status Date / Time No Known Allergies Allergy Verified 06/28/24 12:49 Home Medications Medication Instructions Recorded Confirmed Type ascorbic acid (vitamin C) 500 mg 500 mg PO DAILY 06/21/24 06/28/24 History tablet (Vitamin C) cholecalciferol (vitamin D3) 25 1,000 unit PO DAILY 06/21/24 06/28/24 History mcg (1,000 unit) capsule (Vitamin D3) ursodiol 300 mg capsule See Rx Instructions PO DAILY 06/21/24 06/28/24 History Patient hx anesthesia problems: none Family hx anesthesia problems: none Results Review: All pre-operative results and documents have been reviewed as part of the pre-operative evaluation. [facility] Past Medical History Medical History (Updated 06/28/24 @ 13:16 by Ry Jamil MD) Obesity Primary biliary cirrhosis Social History Social History Smoking status: Never smoker Alcohol intake: current Drinks per week: 1 Alcohol use details: WHISKEY/SCOTCH ONCE WEEKLY Substance use: never Living arrangements: alone Spiritual care concerns: No Anes - Eval Final PreProcedure Day of Procedure 06/28/24 13:13 Patient weight: obese Heart: regular rate and rhythm Lungs: clear to auscultation Airway: Mallampati scale class II Neurological: alert and oriented Last oral intake: >/= 8 hours ASA classification: III Emergent: no Anesthetic plan: proceed Anesthesia type and monitoring: general GIVS and standard monitoring Results Review: All pre-operative results and documents have been reviewed as part of the pre-operative evaluation. Informed Consent: The patient's anesthetic plan and its attendant risks and benefits were discussed with the patient/family/POA. Questions were solicited and answers provided to the satisfaction of the patient/family/POA.
--- NOTE | 2024-06-28 13:20 | PM.HPGS ---
History of Present Illness History of Present Illness Consent: Risks, benefits, and alternatives have been discussed and questions answered. Patient agrees to proceed with procedure. 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 No history of esophageal varices, no gib. Review of Systems Review of Systems: All systems reviewed & are unremarkable except as noted in HPI and below PMFSH Past Medical History Medical History (Updated 06/28/24 @ 13:22 by Antolin Grady MD) Colon polyp Obesity Primary biliary cirrhosis Social History Social History Smoking status: Never smoker Alcohol intake: current Drinks per week: 1 Alcohol use details: WHISKEY/SCOTCH ONCE WEEKLY Substance use: never Living arrangements: alone Spiritual care concerns: No Meds Home Medications and Allergies Home Medications Medication Instructions Recorded Confirmed Type ascorbic acid (vitamin C) 500 mg 500 mg PO DAILY 06/21/24 06/28/24 History tablet (Vitamin C) cholecalciferol (vitamin D3) 25 1,000 unit PO DAILY 06/21/24 06/28/24 History mcg (1,000 unit) capsule (Vitamin D3) ursodiol 300 mg capsule See Rx Instructions PO DAILY 06/21/24 06/28/24 History Allergies Allergy/AdvReac Type Severity Reaction Status Date / Time No Known Allergies Allergy Verified 06/28/24 12:49 Vital Signs Vital Signs - 24 hr 06/28/24 12:44 Temperature 97.9 F Pulse Rate 76 Respiratory Rate 20 Blood Pressure 124/81 Pulse Oximetry 94 Oxygen Delivery Room Air Exam Const: General: comfortable and no acute distress HENMT: Face/Nose/Sinus: Normal nares present Eyes: General: appearance normal, both eyes and all related structures Neck: Neck: no JVD Resp: Auscultation: clear to auscultation bilaterally Cardio: Rate: regular rate Rhythm: regular rhythm GI: Inspection: non-distended GI Palp: Yes Soft to palpation Skin: General skin exam: normal color Neuro: General: gait normal Speech: normal speech Extrem: General: normal to inspection Psych: Mental Status: mental status grossly normal Assessment and Plan Assessment and plan (1) Colon polyp: Code(s): K63.5 - Polyp of colon Status: Acute Assessment and Plan: colonoscopy (2) Primary biliary cirrhosis: Code(s): K74.3 - Primary biliary cirrhosis Status: Acute Assessment and Plan: egd
--- NOTE | 2024-06-28 13:32 | SUR.OPER ---
EGD end: 1326, Colon start: 1329
[2024-06-28 13:39] VITALS: BP 113/56; PULSE 77; RESP 18; O2SAT 98
[2024-06-28 13:49] VITALS: BP 103/62; PULSE 69; RESP 16; O2SAT 96
[2024-06-28 13:59] VITALS: BP 109/75; PULSE 65; RESP 20; O2SAT 99
== END 2024-06-28 14:12 | disposition home or self-care (01) ==
PROVIDERS: PCP Internal Medicine; Referring Provider Internal Medicine; Visit Provider Internal Medicine Gastroenterology
PROC: 0DJD8ZZ Inspection of Lower Intestinal Tract, Via Natural or Artificial Opening Endoscopic (ICD-10-PCS; CPT 45378; principal; 2024-06-28 14:00)
PROC: 0DJ08ZZ Inspection of Upper Intestinal Tract, Via Natural or Artificial Opening Endoscopic (ICD-10-PCS; CPT 43239; 2024-06-28 14:00)
DX: Z12.11 Encounter for screening for malignant neoplasm of colon (principal); D12.2 Benign neoplasm of ascending colon; D12.4 Benign neoplasm of descending colon; K64.8 Other hemorrhoids; K29.50 Unspecified chronic gastritis without bleeding; K74.3 Primary biliary cirrhosis; E66.9 Obesity, unspecified; Z68.30 Body mass index [BMI] 30.0-30.9, adult
CPT/HCPCS: 43239; 45380; 45385; 88305; J2704; J7120

== ENCOUNTER 2024-10-19 13:54 | Outpatient (CLI) | payer BC, SELFPAY ==
--- OUTSIDE RECORDS SUMMARY | 2024-10-18 09:46 | XMS_ITS | Encounter Summary ---
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) Procedures US Liver W Complete Doppler (C) Lorrie Treviño MD [address] [address] Phone: tel: fax: [address] [phone] Referral ID Status Reason Start Date Expiration Date Visits Re quested Visits Authorized [id number] Closed 10/20/2023 11/18/2024 1 1 Reason for Visit * Diagnostic Imaging (Routine) - Closed Specialty Diagnoses / Procedures Referred By Contac t Referred To Contact Diagnoses 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) Procedures US Liver W Complete Doppler (C) Lorrie Treviño MD [address] [place] [address] Phone: tel: fax: [address] [phone] Referral ID Status Reason Start Date Expiration Date Visits Re quested Visits Authorized [id number] Closed 10/20/2023 11/18/2024 1 1 Encounter Details Date Type Department Care Team (Latest Contact Info) Description 10/18/2024 9:46 AM CDT - 10/18/2024 11:59 PM CDT Hospital Encounter [facility] [address] [place] [address] 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 2-4 times a month 09/27/2024 Q2: How many drinks containi ng alcohol do you have on a typical day when you are drinking? 1 or 2 09/27/2024 Frequency of Binge Drinking Not on file 09/14 Personal Safety Answer Date Recorded Have you ever been in or are you currently in a harmful physical or emotional relationship or is someone making you feel afraid or unsafe? 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) Take 2 capsules (600 mg total) by mouth 2 (two) times a day 360 capsule 3 01/23/2024 documented as of this encounter Discharge Disposition Disposition Code Departure Means Destination Discharge to home or self care documented in this encounter Plan of Treatment Not on file documented as of this encounter Procedures Procedure Name Priority Date/Time Associated Diagnosis Comments US LIVER W COMPLETE DOPPLER Schedule Routine, Read Routine (OP Routine) 10/18/2024 1:37 PM CDT 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 Sonographic features of hepatic cirrhosis. No focal solid liver lesion. 2. US LI-RADS Screening/Surveillance Category: US 1 - Negative. 3. Visualization Score: B: Moderate limitations in liver visualization. 4. No Doppler evidence of thrombosis. 5. No intrahepatic biliary ductal dilatation. US LI-RADS 2023 REFERENCE: US Category: US-1 Negative: No ultrasound evidence of hepatocellular carcinoma (HCC). US-2 Subthreshold: Observation<10 mm in diameter, not definitely benign. US-3 Positive: Observation detected that may warrant multi-phase contrast-enhanced imaging. Observation >/= 10 mm in diameter, not definitely benign, including areas of parenchymal distortion OR new thrombus in vein. Visualization Score: A. No or minimal limitations: Limitations, if any, are unlikely to meaningfully affect sensitivity. The liver is homogenous or minimally heterogenous with minimal beam attenuation or shadowing, and is visualized in near entirety. B. Moderate limitations: Limitations may obscure small masses. The liver is moderately heterogenous with moderate beam attenuation or shadowing, and some portions of the liver or diaphragm are not visualized. C. Severe limitations: Limitations significantly lower sensitivity for focal liver lesions. The liver is severely heterogeneous with severe beam attenuation or shadowing, and the majority (>50%) of the liver or diaphragm is not visualized. Consider alternative surveillance imaging modality depending on risk factors. Electronically signed by: Jessica David M.D. Narrative 10/18/2024 1:47 PM CDT EXAMINATION: 1. LIVER SONOGRAM 2. LIVER DOPPLER HISTORY: 69-year-old man with primary biliary sclerosis.. Surveillance ultrasound in patient at high risk for hepatocellular carcinoma. COMPARISON: 07/24/2024 sonogram, 10/21/2022 liver Doppler, 04/26/2023 MRI FINDINGS: LIVER: Visualization Score: B: Moderate limitations in liver visualization. Morphology/Parenchyma/contour: The right liver is decreased in size with hypertrophy of the left lateral section and caudate lobe. Slightly limited visualization of the right hemiliver indication due to its small size and overlying bowel gas. The echotexture is coarse. The echogenicity is normal. There is surface nodularity. Liver observations: No focal liver observations. Ascites: No ascites. Bile Duct: There is no intrahepatic bile duct dilatation. The common bile duct measures up to 2 mm in the proximal segment, 6 mm in the mid segment, and the distal segment is obscured by overlying bowel gas. Spleen: Mild splenomegaly, measuring up to 13.5 cm in longest diameter. LIVER DOPPLER: Color Doppler and spectral analysis were used to evaluate the hepatic vasculature. Portal veins: The main portal vein as well as the right and left branches have hepatopetal (antegrade) flow. No thrombosis is visualized. Hepatic veins: The middle, right, and left hepatic veins are patent with antegrade flow. Portosplenic confluence: The portosplenic confluence is patent with appropriate directional flow. IVC: The inferior vena cava at the level of the liver is patent with appropriate directional flow. Hepatic artery: Limited visualization of the hepatic artery due to overlying bowel gas and its tortuous course when correlated with the prior MRI. The visualized main hepatic artery is patent with antegrade flow. Other: A recannulized umbilical vein is not seen. A coronary vein is not seen. Procedure Note Jessica David MD - 10/18/2024 EXAMINATION: 1. LIVER SONOGRAM 2. LIVER DOPPLER HISTORY: 69-year-old man with primary biliary sclerosis.. Surveillance ultrasound in patient at high risk for hepatocellular carcinoma. COMPARISON: 07/24/2024 sonogram, 10/21/2022 liver Doppler, 04/26/2023 MRI FINDINGS: LIVER: Visualization Score: B: Moderate limitations in liver visualization. Morphology/Parenchyma/contour: The right liver is decreased in size with hypertrophy of the left lateral section and caudate lobe. Slightly limited visualization of the right hemiliver indication due to its small size and overlying bowel gas. The echotexture is coarse. The echogenicity is normal. There is surface nodularity. Liver observations: No focal liver observations. Ascites: No ascites. Bile Duct: There is no intrahepatic bile duct dilatation. The common bile duct measures up to 2 mm in the proximal segment, 6 mm in the mid segment, and the distal segment is obscured by overlying bowel gas. Spleen: Mild splenomegaly, measuring up to 13.5 cm in longest diameter. LIVER DOPPLER: Color Doppler and spectral analysis were used to evaluate the hepatic vasculature. Portal veins: The main portal vein as well as the right and left branches have hepatopetal (antegrade) flow. No thrombosis is visualized. Hepatic veins: The middle, right, and left hepatic veins are patent with antegrade flow. Portosplenic confluence: The portosplenic confluence is patent with appropriate directional flow. IVC: The inferior vena cava at the level of the liver is patent with appropriate directional flow. Hepatic artery: Limited visualization of the hepatic artery due to overlying bowel gas and its tortuous course when correlated with the prior MRI. The visualized main hepatic artery is patent with antegrade flow. Other: A recannulized umbilical vein is not seen. A coronary vein is not seen. IMPRESSION: 1. Sonographic features of hepatic cirrhosis. No focal solid liver lesion. 2. US LI-RADS Screening/Surveillance Category: US 1 - Negative. 3. Visualization Score: B: Moderate limitations in liver visualization. 4. No Doppler evidence of thrombosis. 5. No intrahepatic biliary ductal dilatation. US LI-RADS 2023 REFERENCE: US Category: US-1 Negative: No ultrasound evidence of hepatocellular carcinoma (HCC). US-2 Subthreshold: Observation<10 mm in diameter, not definitely benign. US-3 Positive: Observation detected that may warrant multi-phase contrast-enhanced imaging. Observation >/= 10 mm in diameter, not definitely benign, including areas of parenchymal distortion OR new thrombus in vein. Visualization Score: A. No or minimal limitations: Limitations, if any, are unlikely to meaningfully affect sensitivity. The liver is homogenous or minimally heterogenous with minimal beam attenuation or shadowing, and is visualized in near entirety. B. Moderate limitations: Limitations may obscure small masses. The liver is moderately heterogenous with moderate beam attenuation or shadowing, and some portions of the liver or diaphragm are not visualized. C. Severe limitations: Limitations significantly lower sensitivity for focal liver lesions. The liver is severely heterogeneous with severe beam attenuation or shadowing, and the majority (>50%) of the liver or diaphragm is not visualized. Consider alternative surveillance imaging modality depending on risk factors. Electronically signed by: Jessica David M.D. 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
--- OUTSIDE RECORDS SUMMARY | 2024-10-18 11:20 | XMS_ITS | Encounter Summary ---
Author Organization 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) Procedures US Liver W Complete Doppler (C) Lorrie Treviño MD [address] [place] [address] Phone: tel: fax: [address] [phone] Referral ID Status Reason Start Date Expiration Date V isits Requested Visits Authorized [id number] Pending Review 10/18/2024 11/17/2025 1 1 * Diagnostic Imaging (Routine) - Authorized Specialty Diagnoses / Procedures Referred By Annie t Referred To Contact Diagnoses 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) Procedures Dexa Axial Skeleton Bone Density 1 or 2 Site Lorrie Treviño MD [address] [place] [address] Phone: tel: fax: [address] [phone] Referral ID Status Reason Start Date Expiration Date V isits Requested Visits Authorized [id number] Authorized 10/18/2024 11/17/2025 1 1 * Diagnostic Imaging (Routine) - Pending Review Specialty Diagnoses / Procedures Referred By Contac t Referred To Contact Diagnoses 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) Procedures US Abdomen Limited Lorrie Treviño MD [address] [place] [address] Phone: tel: fax: [address] [phone] Referral ID Status Reason Start Date Expiration Date V isits Requested Visits Authorized [id number] Pending Review 10/18/2024 11/17/2025 1 1 Encounter Details Date Type Department Care Team (Late st Contact Info) Description 10/18/2024 11:20 AM CDT Office Visit [facility] Medicine 12th [place] [address] [place] [address] Lorrie Treviño MD [address] [place] [address] 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) (Primary Dx) Social History Tobacco Use Types Packs/Day Years Used Date Smoking Tobacco: Never Smokeless Tobacco: Never Tobacco Cessation:Counseling Given: Not Answered Alcohol Use Standard Drinks/Week Comments Yes 1 [...] on file 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 Gender Identity Not on file Sexual Orientation Not on file documented as of this encounter Last Filed Vital Signs Vital Sign Reading Time Taken Comments Blood Pressure 121/78 10/18/2024 11:14 AM CDT Pulse 57 10/18/2024 11:14 AM CDT Temperature 36.5 C (97.7 F) 10/18/2024 11:14 AM CDT Respiratory Rate - - Oxygen Saturation 97% 10/18/2024 11:14 AM CDT Inhaled Oxygen Concentration - - Weight 95.7 kg (211 lb) 10/18/2024 11:14 AM CDT Height 172.7 cm (5' 8) 10/18/2024 11:14 AM CDT Body Mass Index 32.08 10/18/2024 11:14 AM CDT documented in this encounter Progress Notes * Dangelo King MD - 10/18/2024 11:20 AM CDT HEPATOLOGY CLINIC VISIT Vaughn Simeon Age: 69 y.o. Date of : 1955 Reason for Visit: PBC with compensated cirrhosis. 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 Last seen 10/20/23 in clinic. At that time, he was doing well overall. Given years of stability on imaging, plans were made to continue hepatoma screening with ultrasound only with consideration for MRI if needed. He was due for variceal screening as well as colonoscopy, which he wanted to coordinatewith a local GI provider. He remained on vitamin D supplementation with osteopenia on bone densitometry in 2013 and 2018. He was planning on discussing surveillance bone densitometry with his PCP. Since that visit, he has undergone liver US 07/24/24, which showed coarse echotexture, surface nodularity, no concerning lesions. Labs show normal liver panel. 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 He is undergoing PET scan tomorrow and then has another office visit with urology on 11/07/24. This is all via [facility]. He had an EGD and colonoscopy in June with Dr. Espinoza at [facility]. He does not recall any varices mentioned. He reports a couple of polyps being snipped off that were benign but does notknow when he was told to repeat colonoscopy. He has not had repeat bone densitometry. Otherwise, [facility] [employer] updates in the past year. Patient Active Problem List Diagnosis Elevated prostate specific antigen (PSA) Past Medical History: Diagnosis Date Personal history of diseases of skin or subcutaneous tissue History of psoriasis - (Added by TW Conv) Personal history of other infectious and parasitic diseases History of hepatitis A - (Added by TW Conv) Past Surgical History: Procedure Laterality Date HERNIA REPAIR ORAL SURGERY [place] COLONOSCOPY FLX DX W/COLLJ SPEC WHEN PFRMD Colonoscopy (Fiberoptic) - (Added by TW Conv) Social History Tobacco Use Smoking status: Never Smokeless tobacco: Never Substance and Sexual Activity Drug use: Never Sexual activity: Defer Alcohol Use: Unknown (09/27/2024) AUDIT-C Frequency of Alcohol Consumption: 2-4 times a month Average Number of Drinks: 1 or 2 Frequency of Binge Drinking: Not on file Family History Problem Relation Age of Onset Colon cancer Mother Family history of colon cancer - (Added by TW Conv) Lung cancer Mother Family history of lung cancer - (Added by TW Conv) Lung cancer Father Family history of lung cancer - (Added by TW Conv) Asthma Sister Family history of asthma - (Added by TW Conv) Autoimmune disease Sister Family history of autoimmune disorder - (Added by TW Conv) Current Outpatient Medications Medication Sig Dispense Refill ascorbic acid (ascorbic acid with charles hips) 500 mg tablet,chewable 1 tablet/chew tab (500 mg total) biotin 5,000 mcg tablet,disintegrating 1 tablet cholecalciferol (VITAMIN D-3) 2,000 unit tablet pt doesnt know med dosage, states that he takes 1 tab daily ursodioL (ACTIGALL) 300 mg capsule Take 2 capsules (600 mg total) by mouth 2 (two) times a day 360 capsule 3 No current facility-administered medications for this visit. Review of Systems: As per HPI Objective: Vitals: 10/18/24 1114 BP: 121/78 Pulse: 57 Temp: 36.5 ??C (97.7 ??F) SpO2: 97% Weight: 95.7 kg (211 lb) Height: 172.7 cm (5' 8) General: Well-developed man in NAD. HEENT: NC/AT. PERRL. EOMI. Normal skin turgor. Neck: Supple. No TMG, JVD or LAD noted. Lungs: CTAB. No wheezing or crackles heard. No respiratory distress. Heart: RRR. +S1, S2. No murmurs or gallops appreciated. Abdomen: Soft. NT/ND. BS active. No organomegaly. Ext/MS: No edema, clubbing, cyanosis, or erythema. Neuro: A&O x3. No focal deficits noted. No asterixis. Psych: Appears to have normal affect, mood and insight. Skin: No obvious rashes or lesions noted. No spider angiomas, no palmar erythema. Data Review Lab Results Component Value Date WBC 5.6 10/20/2023 HGB 14.5 10/20/2023 HCT 44.2 10/20/2023 MCV 95.1 10/20/2023 LABPLAT 146 (L) 10/20/2023 Lab Results Component Value Date GLUCOSE 95 10/20/2023 CALCIUM 9.7 10/20/2023 SODIUM 140 10/20/2023 POTASSIUM 4.5 10/20/2023 CO2 29 10/20/2023 CHLORIDE 104 10/20/2023 BUNSER 16 10/20/2023 CREATININE 1.01 10/20/2023 Lab Results Component Value Date ALT 15 10/20/2023 AST 29 10/20/2023 ALKPHOS 108 10/20/2023 BILITOT 0.6 10/20/2023 Lab Results Component Value Date INR 1.03 10/20/2023 Lab Results Component Value Date AFP 2.2 10/20/2023 Imaging: Results for orders placed during the hospital encounter of 07/24/24 US Abdomen Limited Narrative EXAM DESCRIPTION: US ABDOMEN LIMITED REASON FOR STUDY: Cirrhosis of liver attn to liver for hcc screen TECHNIQUE: Ultrasound of the right upper quadrant of the abdomen was performed with grayscale and color doppler. COMPARISON: 10/20/2023 FINDINGS: PANCREAS: Visualized portions of the pancreas are within normal limits. Portions of the pancreatic body and tail are obscured due to bowel gas. LIVER: The liver demonstrates a coarsened echotexture and surface nodularity characteristic of cirrhosis. No cystic or solid mass lesions were seen within the liver. The liver measures 16.7 cm in greatest diameter. GALLBLADDER: The gallbladder appears unremarkable. No cholelithiasis. No gallbladder wall thickening or pericholecystic fluid. No positive sonographic [place] sign reported. BILIARY: There is no intrahepatic or extrahepatic biliary ductal dilatation. Common bile duct measures 5 mm in diameter. RIGHT KIDNEY: Normal size. Normal echogenicity. No solid mass or cyst. No hydronephrosis. Measures 9.9 cm in length. OTHER: No other significant findings. Impression Hepatic cirrhosis. No cystic or solid mass lesions were seen within the liver. THIS IS AN ELECTRONICALLY VERIFIED FINAL REPORT 07/31/2024 12:11 PM - Electronically signed by Denton Chahal M.D. 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 #PBC with compensated cirrhosis He continues on ursodiol without side effects and is asymptomatic with respect to his disease. He is up-to-date with hepatoma screening with plans for twice annual US. He does need repeat DEXA with osteopenia on 2013 and 2018 studies. He had EGD in the community which we will obtain the results of. - Continue weight-based ursodiol therapy - Plan for US in 6 months and 12 months (with clinic visit), routine labs today - DEXA at [facility] - Will obtain records of EGD in 06/2024 #CRC screening Underwent colonoscopy 06/2024 with polyps per his report, will obtain records. Has family history inmultiple second-degree relatives. #Osteopenia Remains on vitamin D supplementation. Due for repeat DEXA which we will coordinate. Dangelo King MD PGY-5 Gastroenterology Fellow Cosigned by Lorrie Treviño MD at 10/19/2024 12:28 PM CDT Associated attestation - Lorrie Treviño MD - 10/19/2024 12:28 PM CDT I have seen and examined the patient. I agree with the findings and plan of care as documented in the resident/fellow's note. 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 Results from different manufacturers or methods may not be comparable. Serial testing should be performed using the same method. 0-1 month. AFP concentrations may reach or exceed 100,000 ng/mL after depending on gestational age and weight. 1-3 months 50 1000 ng/ml 3-6 months 10 500 ng/ml 6-12 months 3.0 100 ng/ml >1 year 0.0 8.3 ng/ml References Emy Y. et al. J. Ped Surg 1978;13:155-156 Peter Brady et al. Clin Chem Lab Med 2018;57:783-797 Ray Henderson et al. Clin Chem 2014;[id number]. Current interpretive data was last revised 2021. 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
--- OUTSIDE RECORDS SUMMARY | 2024-10-18 16:20 | XMS_ITS | Encounter Summary ---
Author Organization [facility] Address [address] [place] [address] Care Team Providers Care Lumber Trimmer Name Role Phone Roz Montiel MD Primary Care Provide r Encounter Details Date Type Department Care Team (Late st Contact Info) Description 10/18/2024 4:20 PM CDT Lab [facility] Advanced Medicine 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 Gender Identity Not on file Sexual Orientation Not on file documented as of this encounter Plan of Treatment Not on file documented as of this encounter Procedures Procedure Name Priority Date/Time Associated Diagnosis Comments [id number] , TUMOR MARKER Routine 10/18/2024 1:51 PM CDT 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 et al. J. Ped Surg 1978;13:155-156 Peter S. et al. Clin Chem Lab Med 2018;57:783-797 Ray V. et al. Clin Chem 2014;[id number]. Current interpretive data was last revised 2021. Blood 10/18/2024 1:51 PM CDT 10/18/2024 2:24 PM CDT us Lorrie Treviño MD LAB BLOOD ORDERABLES Final Result [facility] Department of Laboratories [place], [place] [id number] * TSH (10/18/2024 1:51 PM CDT) Thyroid Stimulating Hormone 2.12 0.30 - 4.20 mcIUnit/mL Blood 10/18/2024 1:51 PM CDT 10/18/2024 2:24 PM CDT us Lorrie Treviño MD LAB BLOOD ORDERABLES Final Result Performing Organization Address City/State/[facility] Co de Phone Number [facility] Department [place] [address] documented in this encounter Visit Diagnoses Diagnosis 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
--- NOTE | ~2024-10-19 | PE_ITS ---
EXAMINATION: PET_PETPSMAST_PT DATE: 10/19/2024 15:56 INDICATION: Gastric cancer TECHNIQUE: 3.843 mCi of Illucix Ga-68([id number]) was administered i.v. Low dose computed tomography (CT) images were acquired from the base of the brain to the base of the brain to the proximal thighs for attenuation correction and anatomic localization. Positron emission tomography (PET) images were acquired in the same distribution beginning 59 minutes after injection. Images including fused PET/CT images were reconstructed in axial, coronal, and sagittal planes. Automated exposure control technique was employed. The dose-length product was 1129.61mGy-cm. COMPARISON: None FINDINGS: Head/neck: Typical pattern of symmetric physiologic increased activity in the lacrimal, parotid and submandibular glands as well as along the mucosa of the nasal and oral cavities, pharynx and hypopharynx. No pathologically enlarged cervical lymphadenopathy or suspicious foci of increased uptake in the visualized head or neck. Chest: Mild dependent atelectasis in both lungs. No suspicious pulmonary nodules, pneumonia, pulmonary edema or other pulmonary infiltrates. No pleural effusion. Heart size is normal. Atherosclerotic coronary artery calcification. No pericardial effusion. Thoracic aorta is normal in caliber. No pathologically enlarged or PSMA avid thoracic lymphadenopathy. Abdomen/pelvis/proximal thighs: Physiologic renal accumulation and excretion of FDG activity in the kidneys, bladder and along portions of ureters. Activity seen within a 1.2 cm diverticulum arising from the left side of the bladder wall. 2-3 mm nonobstructing stone in the left kidney. Prostatomegaly measuring 4.3 x 3.4 cm. There is a focus of increased uptake in the left central aspect of the prostate with maximal SUV of 11.9 consistent with primary prostate cancer. Normal degree and heterogenous pattern of increased uptake throughout the liver without radiologic correlate or dominant FDG avid lesion. Nonspecific atrophy of the c audal right hepatic lobe. The gallbladder, pancreas, spleen and bilateral adrenal glands are normal. Mild uptake scattered throughout the bowels without radiologic correlate, also likely physiologic. Normal appendix. No other abnormal foci of increased FDG uptake or pathologically enlarged lymphadenopathy in the abdomen, pelvis or proximal thighs. Musculoskeletal: Mild thoracolumbar dextrocurvature. Moderate cervical, thoracic and lumbar spondylosis. No suspicious lytic, blastic or abnormally PSMA avid bone lesions. IMPRESSION: 1. Increased uptake in the central aspect of the mildly enlarged prostate consistent with primary prostate cancer. No evident metastatic disease. 2. Nonspecific atrophy of the caudal segments of the right hepatic lobe. Reviewed, dictated and finalized at location A. IMPRESSION: 1. Increased uptake in the central aspect of the mildly enlarged prostate consi stent with primary prostate cancer. No evident metastatic disease. 2. Nonspecific atrophy of the caudal segments of the right hepatic lobe.
--- OUTSIDE RECORDS SUMMARY | 2024-10-19 14:09 | XMS_ITS | Clinical Summary ---
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 Gender Identity Not on file Sexual Orientation Not on file Last Filed Vital Signs Vital Sign Reading Time Taken Comments Blood Pressure 120/66 04/21/2022 12:50 PM POCKET OPERATOR Pulse 60 04/21/2022 12:50 PM POCKET OPERATOR Temperature 36.4 C (97.5 F) 04/21/2022 12:50 PM POCKET OPERATOR Respiratory Rate 19 04/21/2022 12:50 PM POCKET OPERATOR Oxygen Saturation 99% 04/21/2022 12:50 PM POCKET OPERATOR Inhaled Oxygen Concentration - - Weight 90.7 kg (200 lb) 04/21/2022 12:50 PM POCKET OPERATOR Height 172.7 cm (5' 8) 04/21/2022 12:50 PM POCKET OPERATOR Body Mass Index 30.41 04/21/2022 12:50 PM POCKET OPERATOR Plan of Treatment Not on file Insurance [facility]IC[facility] Care Teams Weekend Caregiver Relationship Specialty Start Date End Date Olga Sheppard MD [address] [place] [address] PCP - General Family Medicine 04/21/22
--- OUTSIDE RECORDS SUMMARY | 2024-10-19 14:09 | XMS_ITS | Clinical Summary ---
Author Organization [facility] Address [address] [place] [address] Care Team Providers Care Assistant Golf Course Superintendent Name Role Phone Unavailable Primary Care Provider Unavailabl e Allergies No known active allergies Medications ursodioL (ACTIGALL) 300 mg capsule 4 capsules po qday 01/23/2024 Active cholecalciferol , Vitamin D3, 50 mcg (2,000 unit) Tablet Take 2,000 Units by mouth daily. Active ascorbic acid (VITAMIN C) 500 mg Tablet, Chewable Take 500 mg by mouth daily. Active Active Problems No known active problems Family History Medical History Relation Name Comments [...] 11:29 AM CDT Height 172.7 cm (5' 8) 06/12/2024 11:2 9 AM CDT Body Mass Index 31.9 06/12/2024 11:29 AM CDT Plan of Treatment Upcoming Encounters Date Type Department Care Team (Late st Contact Info) Description 12/11/2024 11:00 AM CDT Office Visit [facility] Oncology and Hematology - [place] [address] [facility] [address] [place] [address] Semaj Gaona MD [address] [place] [address] Health Maintenance Due Date Last [...] years 1-dose series) 2016 INFLUENZA VACCINE (#1) 2024 ZOSTER VACCINE Completed 02/22/2019, 09/21/2018 Insurance BS BLUE ACCESS/TRUE BLUE PPO
--- OUTSIDE RECORDS SUMMARY | 2024-10-19 14:09 | XMS_ITS | Clinical Summary ---
Author Organization [facility] Address [address] [place] [address] Care Team Providers Care Bobtail Driver Name Role Phone Douglas Francois MD Primary Care Provider [phone] Source Comments [facility],non-owned Affiliates and Associated Physician Practices is amultiple site organization consisting of ambulatory clinics and hospital sitesin [place], [place], [place] and [place]. This disclosure is being madepursuant to the Care Everywhere program and may not contain all information available regarding this patient. 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 Gender Identity Not on file Sexual Orientation [...] 3 - Risk 3-dose series) 07/27/2017 06/29/2017 DEPRESSION SCREENING 02/15/2024 COVID-19 VACCINE ( - 2023-2 5 season) 2024 INFLUENZA VACCINE (#1) 2024 Respiratory Syncytial Virus (RSV) Vaccine Pt: [...] patient's age to complete this topic Insurance [facility] SELF PAY NO INSURANCE Member Subscriber Plan / Payer (Ef fective for All Dates) Name:Linda Gautam Member ID:Not on file Relation to Subscriber:Not on file Name:LINDA GAUTAM Subscriber ID:Not on file (Home) Address: [address] [place] [id number] Payer ID:Not on file Group ID:Not on file Type:Self Pay Address: [place], [place] Care Teams Bobtail Driver Relationship Specialty Start Date End Date Douglas Francois MD [address] [place] [id number] PCP - General 04/06/13
--- OUTSIDE RECORDS SUMMARY | 2024-10-19 14:09 | XMS_ITS | Clinical Summary ---
Author Organization [facility] Address [address] [place] [address] Care Team Providers Care Window Clerk Name Role Phone Roz Montiel MD Primary Care Provide r Allergies Active Allergy Reactions Criticality Noted Date Comments Ceftriaxone Nausea & Vomiting Low 09/27/2024 Medications cholecalciferol (VITAMIN D-3) 2,000 unit tablet pt doesnt know med dosage, states that he takes 1 tab daily Active ascorbic acid (ascorbic acid with charles hips) 500 mg tablet,chewable 1 tablet/chew tab (500 mg total) Active biotin 5,000 mcg tablet,disintegr ating 1 tablet Active ursodioL (ACTIGALL) 300 mg capsuleIndicatio ns: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) Take 2 capsules (600 mg total) by mouth 2 (two) times a day 360 capsule 3 4 Active Active Problems Problem Noted Date Diagnosed Date Elevated prostate specific antigen (PSA) 025 Encounters Date Type Department Care Team Description 10/19/2024 Telephone [facility] Medicine Gastroenterology [address] [facility] [address] [place] [address] [place] [address] Harry Jackson 10/18/2024 4:20 PM CDT Lab [facility] ([facility] [address] [place] [address] 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) 10/18/2024 11:20 AM CDT Office Visit [facility] Medicine Gastroenterology [address] [facility] 12th [place] [address] [place] [address] Lorrie Treviño MD 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) (Primary Dx) 10/18/2024 9:46 AM CDT - 10/18/2024 11:59 PM CDT Hospital Encounter [facility] ([facility]) [address] [place] [address] 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) Discharge Disposition: Discharge to home or self care 09/27/2024 8:30 AM CDT - 09/27/2024 9:15 AM CDT Surgery [facility] Operating Room [address] [place] [address] Haresh Álvarez MD URONAV GUIDED PROSTATE BIOPSY 09/27/2024 8:16 AM CDT Anesthesia Event [facility] Operating Room [address] [place] [address] Gino Osborn DO Kory, Christopher James, MD 09/27/2024 7:11 AM CDT - 09/27/2024 10:17 AM CDT Hospital Encounter [facility] Operating Room [address] [place] [address] Haresh Álvarez MD Elevated prostate specific antigen (PSA) Discharge Disposition: Discharge to home or self care 08/03/2024 Results Follow-Up [facility] Gastroenterology [address] [facility] 12th [place] [address] [place] [address] Lorrie Treviño MD US Abdomen Limited 07/24/2024 2:27 PM CDT - 07/24/2024 11:59 PM CDT Hospital Encounter [facility] [address] [place] [address] 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) Discharge Disposition: Discharge to home or self care from Last 3 Months Immunizations Immunization Administration Dates Next Due Hep B Vaccine 06/29/2017,01/06/2017,12/01/2016 ZOSTER Recombinant 02/22/2019,09/21/2018 Surgical History Surgery Date Site/Laterality Comments NM COLONOSCOPY FLX DX W/SASHA J SPEC WHEN PFRMD Colonoscopy (Fiberoptic) - (Added by TW Conv) HERNIA REPAIR ORAL SURGERY Medical History Medical History Date Comments Personal history of diseases of skin or subcutaneous tissue History of psoriasis - (Adde d by Conv) Personal history of other in fectious and parasitic diseases History of hepatitis A - (Ad ded by Conv) Family History Medical History Relation Name [...] on file 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 Gender Identity Not on file Sexual Orientation Not on file Obstetrics History Last Filed Vital Signs Vital Sign Reading Time Taken Comments Blood Pressure 121/78 10/18/2024 11:14 AM CDT Pulse 57 10/18/2024 11:14 AM CDT Temperature 36.5 C (97.7 F) 10/18/2024 11:14 AM CDT Respiratory Rate 16 09/27/2024 9:54 AM CDT Oxygen Saturation 97% 10/18/2024 11:14 AM CDT Inhaled Oxygen Concentration - - Weight 95.7 kg (211 lb) 10/18/2024 11:14 AM CDT Height 172.7 cm (5' 8) 10/18/2024 11:14 AM CDT Body Mass Index 32.08 10/18/2024 11:14 AM CDT Plan of Treatment Health Maintenance Due Date Last Done Comments Colon Cancer Screening-Colonoscopy 1955 Depression Screening 1955 Hepatitis C Screening 1955 Prostate Cancer Screening-PSA 1955 DTaP/Tdap/Td Vaccine (1 - Tdap) 01/13/1967 Pneumococcal vaccine 65+ (1 of 2 - PCV) 01/13/1975 Well Visit 65+ 01/13/2021 Influenza Vaccine (#1) 2024 Fall Risk Assessment 09/10/2025 09/10/2024 Zoster Vaccine Completed 02/22/2019, 09/21/2018 Procedures Procedure Name Priority Date/Time Associated Diagnosis Comments [id number] , TUMOR MARKER Routine 10/18/2024 1:51 PM CDT 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) TSH Routine 10/18/2024 1:51 PM CDT 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) US LIVER W COMPLETE DOPPLER Schedule Routine, Read Routine (OP Routine) 10/18/2024 1:37 PM CDT 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 Clin Chem 2014;[id number]. Current interpretive data was last revised 2021. Blood 10/18/2024 1:51 PM CDT 10/18/2024 2:24 PM CDT Lorrie Treviño MD LAB BLOOD ORDERABLES Final Result Performing Organization Address City/[facility] Co de Phone Number [facility] [place] [address] * TSH (10/18/2024 1:51 PM CDT) Thyroid Stimulating Hormone 2.12 0.30 - 4.20 mcIUnit/mL Blood 10/18/2024 1:51 PM CDT 10/18/2024 2:24 PM CDT Lorrie Treviño MD LAB BLOOD ORDERABLES Final Result Performing Organization Address [facility] Co de Phone Number [facility] [place] [address] * US Liver W Complete Doppler (C) [...] MD IMG US PROCEDURES Fi nal Result * Surgical pathology (09/27/2024 11:40 AM CDT) Tissue (Prostate, Needle Biopsy) 09/27/2024 8:17 AM CDT Tissue specimen (specimen) (Prostate, Needle Biopsy) 09/27/2024 8:17 AM CDT Tissue specimen (specimen) (Prostate, Needle Biopsy) 09/27/2024 8:17 AM CDT Tissue specimen (specimen) (Prostate, Needle Biopsy) 09/27/2024 8:17 AM CDT Tissue specimen (specimen) (Prostate, Needle Biopsy) 09/27/2024 8:17 AM CDT Tissue specimen (specimen) (Prostate, Needle Biopsy) 09/27/2024 8:17 AM CDT Tissue specimen (specimen) (Prostate, Needle Biopsy) 09/27/2024 8:17 AM CDT Tissue specimen (specimen) (Prostate, Needle Biopsy) 09/27/2024 8:17 AM CDT Tissue specimen (specimen) (Prostate, Needle Biopsy) 09/27/2024 8:17 AM CDT Tissue specimen (specimen) (Prostate, Needle Biopsy) 09/27/2024 8:17 AM CDT Tissue specimen (specimen) (Prostate, Needle Biopsy) 09/27/2024 8:17 AM CDT Tissue specimen (specimen) (Prostate, Needle Biopsy) 09/27/2024 8:17 AM CDT Tissue specimen (specimen) (Prostate, Needle Biopsy) 09/27/2024 8:20 AM CDT Narrative PATHOLOGY [facility] - 10/02/2024 9:34 PM CDT EPIC results best viewed via link to PDF [facility] Department of Pathology [address] [place] [id number] Note to Patients: This report may contain a detailed description of human tissue sent by a health care provider to the laboratory for pathologic evaluation. The content of this report is essential for diagnosis and may provide important critical findings. This information may be unfamiliar to patients to review without a medical professional present. It is advised that the patient review this report in the presence of a health care provider who can answer questions and explain the details. Final Report Patient Name: LINDA GAUTAM Address: [address], [place] [address] Gender: M : 1955 (Age: 69) Service: Surgery Location: [facility] Hospital #: [id number] Patient Type: [facility] Taken: 09/27/2024 Received: 09/27/2024 Accessioned: 09/27/2024 Reported: 10/02/2024 Physician(s):Haresh Álvarez M.D. Diagnosis: J. 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 L. Prostate, left medial apex, needle biopsy: - Adenocarcinoma, Oscar grade 3 + 4 (score = 7), grade group 2, 20% pattern 4, involving 1 of 2 tissue core, 2 linear mm, 30% of tissue. M. Prostate, region of interest, needle biopsy: - Adenocarcinoma, Oscar grade 4 + 3 (score = 7), grade group 3, 65% pattern 4, involving 3 of 5 tissue core, 17 linear mm, 40% of tissue. A - I, K. Prostate, (right lateral base, right medial base, right lateral mid, right medial mid, right lateral apex, right medial apex, left lateral base, left medial base, left lateral mid, left lateral apex), needle biopsies: - Benign prostatic tissue. Antoinette Neff M.D. Report Electronically Reviewed and Signed Out By Antoinette Neff M.D. 10/02/2024 21:34:36 Specimen(s) Received: A: Right lateral base B: Right medial base C: Right lateral mid D: Right medial mid E: Right lateral apex F: Right medial apex G: Left lateral base H: Left medial base I: Left lateral mid J: Left medial mid K: Left lateral apex L: Left medial apex M: Region of interest Microscopic Description: J, L & M. Microscopic examination of the left medial mid, left medial apex and region of interest prostate biopsies each show foci of adenocarcinoma, Oscar patterns 3 and 4. The diagnosis of carcinoma is supported on review of the PIN 4 triple cocktail (performed with appropriate controls) which demonstrates negative staining for the 34Be12/p63 cocktail and positive staining for AMACR in the glands in question. A - I, K. Microscopic examination of the multiple prostate biopsies show cores of benign prostatic tissue. Intradepartmental consultation: Dr. Calle has reviewed selected slides (parts J, L and M) and concurs. Clinical History: Elevated prostate specifcic antigen. Uronav guided prostate biopsy. Gross Description: The specimen is submitted in thirteen containers labeled LINDA GAUTAM. A. The first container is labeled right lateral base. It is 1 core of garcia tissue measuring 1.2 cm. Entirely in A. B. The second container is labeled right medial base. It is 1 core of garcia tissue measuring 1 cm. Entirely in B. C. The third container is labeled right lateral mid. It is 1 core of garcia tissue measuring 1.1 cm. Entirely in C. D. The fourth container is labeled right medial mid. It is 1 core of garcia tissue measuring 1.7 cm. Entirely in D. E. The fifth container is labeled right lateral apex. It is 1 core of garcia tissue measuring 1.2 cm. Entirely in E. F. The sixth container is labeled right medial apex. It is 1 core of garcia tissue measuring 1.4 cm. Entirely in F. G. The seventh container is labeled left lateral base. It is 1 core of garcia tissue measuring 1.2 cm. Entirely in G. H. The eighth container is labeled left medial base. It is 1 core of garcia tissue measuring 1.4 cm. Entirely in H. I. The ninth container is labeled left lateral mid. It is 1 core of garcia tissue measuring 1.2 cm. Entirely in I. J. The tenth container is labeled left medial mid. It is 1 core of garcia tissue measuring 1.7 cm. Entirely in J. K. The eleventh container is labeled left lateral apex. It is 1 core of garcia tissue measuring 2 mm. Entirely in K. L. The twelfth container is labeled left medial apex. It is 2 cores of garcia tissue between 3 and 4 mm. Entirely in L. M. The thirteenth container is labeled region of interest. It is 5 cores of garcia tissue between 0.3 and 1.4 cm. Entirely in M. T.A. Peter Trevino., P.A./Ghislaine Calle M.D. REPORT IMAGES AND SCANNED DOCUMENTS, IF INCLUDED, ONLY VIEWABLE IN PDF VERSION OF REPORT The performance characteristics of some immunohistochemical stains, fluorescence in-situ hybridization tests and immunophenotyping by flow cytometry cited in this report (if any) were determined by the Surgical Pathology Department at [facility] as part of an ongoing quality management coordinator program and in compliance with federally mandated regulations drawn from the Clinical Laboratory Improvement Act of 1988 (CLIA '88). Some of these tests rely on the use of analyte specific reagents and are subject to specific labeling requirements by the US Food and Drug Administration. Such diagnostic tests may only be performed in a facility that is certified by the Department of Health and Human Services as a high complexity laboratory under CLIA '88. The FDA has determined that such clearance or approval is not necessary. This test is used for clinical purposes. It should not be regarded as investigational or for research. Nevertheless, federal rules concerning the medical use of analyte specific reagents require that the following disclaimer be attached to the report: This test was developed and its performance characteristics determined by the Surgical Pathology Department [facility]. It has not been cleared or approved by the U. S. Food and Drug Administration. Note for decalcified specimens: This assay has not been validated on decalcified tissues. Results should be interpreted with caution given the possibility of false negativity on decalcified specimens Haresh Álvarez MD LAB PATHOLOGY ORDERA BLES Final Result Performing Organization Address City/State/[facility] Co de Phone Number PATHOLOGY [address] [address] * NM AN ELECTIVE ENDOTRACHEAL AIRWAY (09/27/2024 8:33 AM CDT) Narrative Gabrielle Bolaños CRNA - 09/27/2024 8:33 AM CDT Gabrielle Bolaños CRNA 09/27/2024 8:33 AM Airway Patient location: OR Urgency: elective Indications for airway management: anesthesia and airway protection Difficult airway: no Staff: Placed by: VASQUEZ: Gabrielle Bolaños CRNA Emergent airway documentation: Risks and benefits discussed: yes Consent obtained: yes Consent given by: patient Airway prep: Preoxygenated: yes Patient position: sniffing Mask difficulty assessment: 1 - vent by mask Sedation level during airway: GA Final airway details: Final airway type: endotracheal airway Tube type: ETT ETT size: 7.5 mm Cuffed: yes Technique used for successful ETT placement: video laryngoscopy Devices/Methods used in placement: intubating stylet Insertion site: oral Video blade type: Pettit Blade size: 3 Cormack-Lehane (video): grade I - full view of glottis Cuff volume: 8 mL Cuff inflated with: air ETT to lips: 22 cm Placement verified by: auscultation Airway secured with: silk tape Number of attempts: 1 Gino Osborn DO ANESTHESIA ORDERABL ES Final Result * ECG 12 lead (09/27/2024 7:37 AM CDT) 09/27/2024 7:37 AM CDT Narrative [facility] - 09/27/2024 2:25 PM CDT Vent Rate: 56 bpm RR Interval: 1065 msec NM Interval: 159 msec QRS Duration: 106 msec QT Interval: 470 msec QTC Interval: 461 msec P-R-T Purlear: 55 - -48 - 8 degrees IMPRESSION: SINUS BRADYCARDIA WITH OCCASIONAL VENTRICULAR PREMATURE COMPLEXES PATTERN CONSISTENT WITH PULMONARY DISEASE LEFT ANTERIOR FASCICULAR BLOCK [QRS AXIS <= -45, QR IN I, RS IN II] PROLONGED QT INTERVAL ABNORMAL ECG Electronically Signed By: Baltazar Marmolejo MD Gino Osborn DO ECG ORDERABLES Fin al Result [facility] * US Abdomen Limited (07/24/2024 3:45 PM CDT) Anatomical Region Laterality Modality Abdomen N/A Ultrasound 07/31/2024 12:0 9 PM CDT Narrative 07/31/2024 12:11 PM CDT EXAM DESCRIPTION: US ABDOMEN LIMITED REASON FOR [...] thickening or pericholecystic fluid. No positive sonographic Wells sign reported. BILIARY: There is no intrahepatic or extrahepatic biliary ductal dilatation. Common bile duct measures 5 mm in diameter. RIGHT KIDNEY: Normal size. Normal echogenicity. No solid mass or cyst. No hydronephrosis. Measures 9.9 cm in length. OTHER: No other significant findings. IMPRESSION: Hepatic cirrhosis. No cystic or solid mass lesions were seen within the liver. THIS IS AN ELECTRONICALLY VERIFIED FINAL REPORT 07/31/2024 12:11 PM - Electronically signed by Denton Chahal M.D. KT: JORDAN Report ID: [id number] Reading Location: [id number] Procedure Note Denton Chahal MD - 07/31/2024 EXAM DESCRIPTION: US ABDOMEN LIMITED REASON FOR STUDY: Cirrhosis of liver attn to liver for hcc screen TECHNIQUE: Ultrasound of the right upper quadrant of the abdomen wasperformed with grayscale and color doppler. COMPARISON: 10/20/2023 FINDINGS: PANCREAS: Visualized portions of the pancreas are within normal limits. Portions of the pancreatic body and tail are obscured due to bowel gas. LIVER: The liver demonstrates a coarsened echotexture and surfacenodularity characteristic of cirrhosis. No cystic or solid mass lesions were seenwithin the liver. The liver measures 16.7 cm in greatest diameter. GALLBLADDER: The gallbladder appears unremarkable. No cholelithiasis.No gallbladder wall thickening or pericholecystic fluid. No positivesonographic Wells sign reported. BILIARY: There is no intrahepatic or extrahepatic biliary ductaldilatation. Common bile duct measures 5 mm in diameter. RIGHT KIDNEY: Normal size. Normal echogenicity. No solid mass or cyst.No hydronephrosis. Measures 9.9 cm in length. OTHER: No other significant findings. IMPRESSION: Hepatic cirrhosis. No cystic or solid mass lesions were seen within theliver. THIS IS AN ELECTRONICALLY VERIFIED FINAL REPORT 07/31/2024 12:11 PM - Electronically signed by Denton Chahal M.D. KT: JORDAN Report ID: [id number] Reading Location: [place] [address] Lorrie Treviño MD [facility] PROCEDURES Fi nal Result from Last 3 Months Insurance [place] [facility] Member Subscriber Plan / Payer ( fective 2024-Present) Name:Linda Gautam Relation to Subscriber:Self Name:Linda Gautam Payer ID:[id number] ([facility]) Type: OTHER Address: [address] [place] [address] MEDICARE Care Teams Window Clerk Relationship Specialty Start Date End Date Roz Montiel MD [address] [address] PCP - General Internal Medicine 10/20/23
--- OUTSIDE RECORDS SUMMARY | 2024-10-19 14:10 | XMS_ITS | Encounter Summary ---
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 ----- Message from Lorrie Treviño MD sent at 10/18/2024 12:12 PM CDT ----- Regarding: EGD/colonoscopy Please request EGD/colon reports from Dr. Espinoza at [facility] ( completed 06/28/24). Thanks documented in this encounter Plan of Treatment Not on file documented as of this encounter Visit Diagnoses Not on filedocumented in this encounter Care Teams Manager Drilling Relationship Specialty Start Date End Date Roz Montiel MD [address] [place] [address] PCP - General Internal Medicine 10/20/23 documented as of this encounter
== END 2024-10-19 13:55 | disposition home or self-care (01) ==
PROVIDERS: PCP Internal Medicine; Referring Provider Internal Medicine Gastroenterology; Visit Provider Nurse Practitioner
DX: C61 Malignant neoplasm of prostate (principal)
CPT/HCPCS: 78815; A9596

== ENCOUNTER 2024-12-11 11:04 | Outpatient (CLI) | payer BC, SELFPAY ==
--- OUTSIDE RECORDS SUMMARY | 2024-12-11 11:00 | XMS_ITS | Encounter Summary ---
Author Organization [facility] [employer] [facility] Address [address] [place] [address] Care Team Providers Care Lead Cook Name Role Phone Unavailable Primary Care Provider Unavailabl e Reason for Visit * Reason Comments Follow Up Encounter Details Date Type Department Care Team ([facility] st Contact Info) Description 12/11/2024 11:00 AM CDT Office Visit [facility] Oncology and Hematology - [place] [address] [facility] [address] [place] [address] Semaj Gaona MD [address] [facility] [address] [place] [address] Other secondary thrombocytopenia (Primary Dx) Social History Tobacco Use Types [...] Sign Reading Time Taken Comments Blood Pressure 139/79 12/11/2024 11:20 AM CDT Pulse 71 12/11/2024 11:20 AM CDT Temperature 36.3 C (97.4 F) 12/11/2024 11:20 AM CDT Respiratory Rate 15 12/11/2024 11:20 AM CDT Oxygen Saturation 97% 12/11/2024 11:20 AM CDT Inhaled Oxygen Concentration - - Weight 97.2 kg (214 lb 3.2 oz) 12/11/2024 11:20 AM CDT Height - - Body Mass Index 32.57 06/12/2024 11:29 AM CDT documented in this encounter Progress Notes * Semaj Gaona MD - 12/11/2024 11:55 AM CDT HEMATOLOGY / ONCOLOGY PROGRESS NOTE Patient Identification: Name: Vaughn Simeon Age: 69 y.o. Sex: male : 1955 DIAGNOSIS Thrombocytopenia CURRENT TREATMENT Expectant TREATMENT HISTORY SUBJECTIVE This is a follow-up visit with patient. He denies any bleeding and bruising. He was recently diagnosed with prostate cancer and going to start radiation therapy treatment. He denies any chest pain orshortness of breath. Weight and appetite stable. No other new complaints. Review of system Constitutional: Patient did not mention fevers, sweats, fatigue, malaise, weight loss HEENT: Patient did not mention sinus congestion, hearing or vision problems Respiratory: Patient did not mention cough, dyspnea, wheeze Cardiovascular: Patient did not mention chest pain, exertional chest pressure/discomfort, nausea, syncope, shortness of breath GI: Patient did not mention constipation, diarrhea, dsyphagia, reflux symptoms, vomiting, melena : Patient did not mention dysuria, frequency, incontinence, urgency Integumentary system: no lymphadenopathy, sweats, flushing Musculoskeletal: Patient not mention: myalgia, arthralgia Neurological: Patient did not mention blurry or disturbed vision, numbness/weakness, dizziness Skin: No lumps, bumps or rashes. Objective: Vital signs in last 24 hours: As per nursing note Exam: General appearance: alert, cooperative, no distress, appears stated age Head: normocephalic, without obvious abnormality, atraumatic Eyes: conjunctivae/corneas clear, EOM's intact Ears: normal external ear canals AU Nose: Nares normal. Septum midline. Mucosa normal. No drainage or sinus tenderness Throat: Lips, mucosa, and tongue normal. Teeth and gums normal Neck: supple, symmetrical, trachea midline. Lungs: clear to auscultation bilaterally Heart: regular rate and rhythm, S1, S2 normal, no murmur, click, rub or gallop Abdomen: soft, non-tender. Bowel sounds normal. No masses, No organomegaly Extremities: extremities normal, atraumatic, no cyanosis or edema Skin: Skin color, texture, turgor normal. No rashes or lesions Lymph nodes: No lymphadenopathy Neuro: No obvious focal deficit PATH LABS Labs from December 11 showed WBC 5.9 hemoglobin 14.3 platelet 137,000 creatinine 1.3 @IMAGEIMP@ Assessment: Plan: There are no active problems to display for this patient. Thrombocytopenia. 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 Patient platelet counts are stable. He is asymptomatic without any bleeding. He will continue to follow-up with Dr. Treviño at [facility] for primary biliary cirrhosis. I will fo llow-up with him on a yearly basis. Primary biliary cirrhosis. Patient will follow-up with Dr. Treviño at [facility]. Prostate cancer. Patient is going to start radiation therapy treatment. He will also continue ADT for 6 months and will follow-up with the radiation oncologist. ? TOBACCO COUNSELING He is not a tobacco/nicotine user. 12/11/2024 Semaj Gaona MD documented in this encounter Plan of Treatment Upcoming Encounters Date Type Department Care Team (Late st Contact Info) Description 11/13/2025 11:00 AM CDT Office Visit [facility] Oncology and Hematology - [place] [address] [place] [address] [address] [place] [address] Semaj Gaona MD [address] [facility] [address] [place] [address] Scheduled Orders Name Type Priority Associated Diagnoses Orde r Schedule CBC WITH DIFFERENTIAL Lab Stat Other secondary thrombocytopenia Expected: 12/11/2025, Expires: 03/11/2026 COMPREHENSIVE METABOLIC PANEL Lab Stat Other secondary thrombocytopenia Expected: 12/11/2025, Expires: 03/11/2026 documented as of this encounter Visit Diagnoses Diagnosis Other secondary thrombocytopenia- Primary documented in this encounter
[2024-12-11 11:25] LABS: Hematocrit 43.0 % (42.0-52.0); Hemoglobin 14.3 g/dL (14.0-18.0); Immature Granulocyte Percent A 0.2 % (0-0.5); Immature Platelet Fraction Pct 1.6 % (0.9-11.2); Lymphocytes Absolute Auto 1.30 K/mm3 (0.9-3.2); Mean Corpuscular HGB Conc 33.3 g/dl (32-36); Mean Corpuscular Hemoglobin 32.3 pg (26-34); Mean Corpuscular Volume 97.1 fl (80-100); Nucleated Red Blood Cells Absolute Auto 0.000 K/mm3 (0.0-0.012); Nucleated Red Blood Cells Perc 0.0 % (0.0-0.2); Platelet Count Result 137 k/mm3 (150-375); Red Blood Count 4.43 M/mm3 (4.6-6.20); White Blood Count 5.9 K/mm3 (4.5-10.0)
[2024-12-11 11:27] LABS: Blood Urea Nitrogen 19 mg/dL (8-26); Carbon Dioxide 30 mmol/L (22-30); Chloride 104 mmol/L (98-109); Estimated Glomerular Filt Rate 55; Glucose 87 mg/dL (70-105); Ionized Calcium (POC) 1.22 mmol/L (1.11-1.31); Potassium 3.9 mmol/L (3.5-4.9); Sodium 143 mmol/L (138-146)
--- OUTSIDE RECORDS SUMMARY | 2024-12-11 13:03 | XMS_ITS | Encounter Summary ---
Author Organization [facility] Address [address] [place] [address] Care Team Providers Care Fire Apparatus Sprinkler Inspector Name Role Phone Roz Montiel MD Primary Care Provide r Edgardo Tran MD PhD Unavailable [phone] Haresh Álvarez MD Unavailable [phone] Encounter Details Date Type Department Care Team (Late st Contact Info) Description 12/11/2024 Telephone [facility] Radiation Oncology [address] [place] [id number] Joseph Samuel RN Social History Tobacco Use Types Packs/Day Years [...] on file Legal Sex Male 6:12 AM [employer] Gender Identity Not on file Sexual Orientation Not on file documented as of this encounter Miscellaneous Notes * Telephone Encounter - Joseph Samuel RN - 12/11/2024 10:50 AM CDT Called Pt to discuss when he is starting his ADT. Pt stated he has a f/u with Dr. Álvarez tomorrow, and will call our office back after that and let us know. Explained to Pt after he starts his ADT,we will schedule his CT Simulation accordingly. Pt voiced understanding. documented in this encounter Plan of Treatment Not on file documented as of this encounter Visit Diagnoses Not on filedocumented in this encounter Care Teams Fire Apparatus Sprinkler Inspector Relationship Specialty Start Date End Date Roz Montiel MD [address] [address] PCP - General Internal Medicine 10/20/23 Edgardo Tran MD PhD [address] [place] [id number] Radiation Oncologist Radiation Oncology 11/15/24 Haresh Á[place] [address] [address] [place] [id number] Consulting Physician Urology 11/15/24 documented as of this encounter
--- OUTSIDE RECORDS SUMMARY | 2024-12-11 13:03 | XMS_ITS | Clinical Summary ---
Author Organization [facility] Address [address] [place] [address] Care Team Providers Care Otr Truck Driver Name Role Phone Roz Montiel MD Primary Care Provide r Edgardo Tran MD PhD Unavailable [phone] Haresh Álvarez MD Unavailable [phone] Allergies Active Allergy Reactions Criticality Noted Date [...] Active Problems Problem Noted Date Diagnosed Date Malignant neoplasm of prostate 11/15/2024 Cancer Staging:Clinical stage from 11/15/2024:Stage IIC(cT2a, cN0, cM0, PSA: 5.9, Grade Group: 3) - Signed by Edgardo Tran MD PhD on 11/15/2024 Elevated prostate specific antigen (PSA) 025 Encounters Date Type Department Care Team Description 12/11/[address] [facility] Radiation Oncology [address] [place] [address] Joseph Samuel RN 11/21/2024 10:15 AM CDT Lab [address] [address] Malignant neoplasm of prostate (HCC) 11/15/2024 1:00 PM CDT Consult [facility] Radiation Oncology [address] [place] [address] Edgardo Tran MD PhD Prostate cancer (HCC) (Primary Dx); Malignant neoplasm of prostate (HCC) 11/13/2024 10:19 AM CDT - 11/13/2024 11:59 PM CDT Hospital Encounter [facility]) [address] [place] [address] Discharge Disposition: Discharge to home or self care 11/12/2024 2:24 PM CDT - 11/12/2024 11:59 PM CDT Hospital Encounter [facility] ([facility]) [address] [place] [address] Discharge Disposition: Discharge to home or self care 11/07/2024 Orders Only [facility] Operating Room [address] [place] [address] Haresh Álvarez MD Prostate cancer (HCC) (Primary Dx) 10/26/2024 Orders Only [facility] Scanning, Provider 10/22/2024 1:22 PM CDT - 10/22/2024 11:59 PM CDT Hospital Encounter [facility] [address] [place] [address] 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) Discharge Disposition: Discharge to home or self care 10/22/2024 Results Follow-Up [facility] [address] [facility] 2nd Floor [address] [place] [address] Lorrie Treviño MD Dexa Axial Skeleton Bone Density 1 or 2 Site 10/19/2024 Telephone [facility] [address] [place] [address] for Advanced Medicine 12th [place] [address] [place] [address] Harry Jackson Raven 10/18/2024 4:20 PM CDT Lab [facility] ([facility]) [address] [place] [address] 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) 10/18/2024 11:20 AM CDT Office Visit [facility] Medicine Gastroenterology [address] [facility] Advanced Medicine 12th [place] [address] [place] [address] Lorrie Treviño MD 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) (Primary Dx) 10/18/2024 9:46 AM CDT - 10/18/2024 11:59 PM CDT Hospital Encounter [facility] ([facility]) [address] [place] [address] 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) Discharge Disposition: Discharge to home or self care 09/27/2024 8:30 AM CDT - 09/27/2024 9:15 AM CDT Surgery [facility] Operating Room 1 [place] [address] Haresh Álvarez MD URONAV GUIDED PROSTATE BIOPSY 09/27/2024 8:16 AM CDT Anesthesia Event [facility] Operating Room [address] [place] [address] Gino Osborn DO Kory, Christopher James, MD 09/27/2024 7:11 AM CDT - 09/27/2024 10:17 AM CDT Hospital Encounter [facility] Operating Room [address] [place] [address] Haresh Álvarez MD Elevated prostate specific antigen (PSA) Discharge Disposition: Discharge to home or self care from Last 3 Months Immunizations Immunization Administration Dates Next Due Hep B Vaccine 06/29/2017,01/06/2017,12/01/2016 ZOSTER Recombinant 02/22/2019,09/21/2018 Surgical History Surgery Date Site/Laterality Comments [place] COLONOSCOPY FLX DX W/SASHA J SPEC WHEN PFRMD Colonoscopy (Fiberoptic) - (Added by CLAY Conv) HERNIA REPAIR ORAL SURGERY Medical History [...] on file 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 Gender Identity Not on file Sexual Orientation Not on file Obstetrics History Last Filed Vital Signs Vital Sign Reading Time Taken Comments Blood Pressure 128/75 11/15/2024 1:18 PM CDT Pulse 71 11/15/2024 1:18 PM CDT Temperature 36.7 C (98 F) 11/15/2024 1:18 PM CDT Respiratory Rate 18 11/15/2024 1:18 PM CDT Oxygen Saturation 99% 11/15/2024 1:18 PM CDT Inhaled Oxygen Concentration - - Weight 96.5 kg (212 lb 12.8 oz) 11/15/2024 1:18 PM CDT Height 172.7 cm (5' 8) 10/18/2024 11:1 4 AM CDT Body Mass Index 32.36 10/18/2024 11:14 AM CDT Plan of Treatment Health Maintenance Due Date Last Done Comments Colon Cancer Screening-Colonoscopy 1955 Depression Screening 1955 Hepatitis C Screening 1955 DTaP/Tdap/Td Vaccine (1 - Tdap) 01/13/1967 Pneumococcal vaccine 65+ (1 of 2 - PCV) 01/13/1975 Well Visit 65+ 01/13/2021 Influenza Vaccine (#1) 2024 Fall Risk Assessment 09/10/2025 09/10/2024 Prostate Cancer Screening-PSA 11/21/2026 11/21/2024 Zoster Vaccine Completed 02/22/2019, 09/21/2018 Procedures Procedure Name Priority Date/Time Associated Diagnosis Comments PSA DIAGNOSTIC Routine 11/21/2024 11:05 AM CDT Malignant neoplasm of prostate (HCC) PET OUTSIDE REFERENCE Routine 11/13/2024 10:19 AM CDT MR BODY OUTSIDE REFERENCE Routine 11/12/2024 2:24 PM CDT SCAN - PATHOLOGY 10/26/2024 3:13 PM CDT DEXA AXIAL SKELETON BONE DENSITY 1 OR MORE SITES Schedule Routine, Read Routine (OP Routine) 10/22/2024 1:33 PM CDT 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) [id number] , TUMOR MARKER Routine 10/18/2024 1:51 PM [...] AM CDT Elevated prostate specific antigen (PSA) [place] AN ELECTIVE ENDOTRACHEAL AIRWAY Routine 09/27/2024 8:33 AM CDT URONAV GUIDED PROSTATE BIOPSY 09/27/2024 8:16 AM CDT Elevated prostate specific antigen (PSA) ECG 12-LEAD STAT 09/27/2024 7:37 AM CDT from Last 3 Months Results * (ABNORMAL) PSA diagnostic (11/21/2024 11:05 AM CDT) PSA-Total 5.56(H) <=5.40 ng/mL [facility] ([facility]) Comment: Interpretive Data AGE SEX REFERENCE INTERVAL 0 minutes-150 years Female None 0 minutes-49 years Male None 50-59 years Male 0-3.90 60-69 years Male 0-5.40 70-79 years Male 0-6.20 80-150 years Male 0-6.20 The Humberto PSA Total assay procedure was used. Results from different manufacturers or methods may not be comparable. Serial testing should be performed using the same method. Current interpretive data last revised 21. Blood 11/21/2024 11:0 5 AM CDT 11/21/2024 11:40 AM CDT us Edgardo Tran MD PhD LAB BLOOD ORDERABLES F inal Result [facility] ([facility]) [address] [facility] [place] [address] * PET Outside Reference (11/13/2024 10:19 AM CDT) Impressions RAD_PACS_[facility] - 11/13/2024 10:19 AM CDT These images are for Reference purposes only and have not been reviewed by [facility] Radiology. There will be no report generated by a [facility] Radiologist. Narrative RAD_PACS_[facility]J - 11/13/2024 10:19 AM CDT EXAMINATION: Images For Reference Purposes Only Procedure Note Yenny Sanchez, RENTAL CLERK TOOL AND EQUIPMENT - 11/13/2024 EXAMINATION: Images For Reference Purposes Only IMPRESSION:These images are for Reference purposes only and have not beenreviewed by [facility] Radiology. There will be no reportgenerated by a [facility] Radiologist. Edgardo Tran MD PhD IMG PET PROCEDURES Fin al Result Performing Organization Address [facility] de Phone Number [facility]_PACS[facility] * MR Body Outside Reference (11/12/2024 2:24 PM CDT) Impressions [facility]_PABLO[facility] - 11/12/2024 2:24 PM CDT These images are for Reference purposes only and have not been reviewed by [facility] Radiology. There will be no report generated by a [facility] Radiologist. Narrative FER_PABLO_[facility] - 11/12/2024 2:24 PM CDT EXAMINATION: Images For Reference Purposes Only Procedure Note Yenny Sanchez, RENTAL CLERK TOOL AND EQUIPMENT - 11/12/2024 EXAMINATION: Images For Reference Purposes Only IMPRESSION:These images are for Reference purposes only and have not beenreviewed by [facility] Radiology. There will be no reportgenerated by a [facility] Radiologist. Edgardo Tran MD PhD IMG MRI PROCEDURES Fin al Result Performing Organization Address [facility] de Phone Number [facility]_PACS[facility] * SCAN - PATHOLOGY (10/26/2024 3:13 PM CDT) Provider Scanning Final Result * Dexa Axial Skeleton Bone Density 1 or 2 Site (10/22/2024 1:33 PM CDT) Anatomical Region Laterality Modality Body N/A Other 10/22/2024 1:41 PM CDT Narrative 10/22/2024 1:41 PM CDT EXAM DESCRIPTION: DEXA AXIAL SKELETON BONE DENSITY 1 OR MORE SITES REASON FOR STUDY: 69 y/o year old M with given history of: PBC with increased risk for osteopenia Screening Veneer Taping Machine Operator/Model: Streak (S/N [id number]) Facility LSC value of 0.022 for the AP spine, 0.027 for the femur, and 0.023 for the forearm. CLINICAL INFORMATION: Current height: 60 inches Maximum height: 69 inches Weight: 211 pounds Risk factors: None COMPARISON: None available FINDINGS: AP LUMBAR SPINE L1-L4: Total BMD is 0.950 g/cm2 T-score is -0.9 LEFT HIP: Total BMD is 0.912 g/cm2 T-score is -0.2 Femoral neck BMD is 0.791 g/cm2 T-score is -0.5 FRAX: FRAX not reported due to T-scores of hip, femoral neck and/or spine being at or above -1.0 (Normal). IMPRESSION: 1. Normal bone mass. REFERENCE: Bone mineral density: T-Score: Normal (T-score above or = -1.0) Low bone mass (T-score between -1.0 and -2.5) replaces the previously used term osteopenia Osteoporosis (T-score = or below -2.5) Z-Score: Within the expected range for age (Z-score above -2.0) Below the expected range for age (Z-score is -2.0 or below) Please see below follow up recommendations. Medical evaluation for secondary causes of low bone mineral density may be appropriate. FRAX is a World Health Organization validated fracture risk assessment tool that calculates a person's 10 year probability of a major osteoporosis related fracture and hip fracture. According to the National Osteoporosis Foundation guidelines, postmenopausal women and men age 50 or older with low bone mass and a 10 year probability of a major osteoporosis related fracture = or greater than 20% or a 10 year probability of a hip fracture = or greater than 3% should be considered for pharmacological treatment for the prevention of osteoporosis. For further information, including treatment recommendations, please refer to the 2019 ISCD Official Positions (http://www.iscd.org) and the NOF's Clinician's Guide to Prevention and Treatment of Osteoporosis (http://www.nof.org/professionals/clinical-guidelines) THIS IS AN ELECTRONICALLY VERIFIED FINAL REPORT 10/22/2024 1:41 PM - Electronically signed by Lisa Ocampo M.D. TW: TW Report ID: [id number] Reading Location: [id number] Procedure Note Lisa Ocampo MD - 10/22/2024 EXAM DESCRIPTION: DEXA AXIAL SKELETON BONE DENSITY 1 OR MORE SITES REASON FOR STUDY: 69 y/o year old M with given history of: PBC with increased risk for osteopenia Screening Veneer Taping Machine Operator/Model: [employer] Discovery SL (S/N [id number]) Facility LSC value of 0.022 for the AP spine, 0.027 for the femur, and0.023 for the forearm. CLINICAL INFORMATION: Current height: 60 inches Maximum height: 69 inches Weight: 211 pounds Risk factors: None COMPARISON: None available FINDINGS: AP LUMBAR SPINE L1-L4: Total BMD is 0.950 g/cm2 T-score is -0.9 LEFT HIP: Total BMD is 0.912 g/cm2 T-score is -0.2 Femoral neck BMD is 0.791 g/cm2 T-score is -0.5 FRAX: FRAX not reported due to T-scores of hip, femoral neck and/or spine beingat or above -1.0 (Normal). IMPRESSION: 1. Normal bone mass. REFERENCE: Bone mineral density: T-Score: Normal (T-score above or = -1.0) Low bone mass (T-score between -1.0 and -2.5) replaces thepreviously used term osteopenia Osteoporosis (T-score = or below -2.5) Z-Score: Within the expected range for age (Z-score above -2.0) Below the expected range for age (Z-score is -2.0 or below) Please see below follow up recommendations. Medical evaluation forsecondary causes of low bone mineral density may be appropriate. FRAX is a World Health Organization validated fracture risk assessmenttool that calculates a person's 10 year probability of a major osteoporosisrelated fracture and hip fracture. According to the National OsteoporosisFoundation guidelines, postmenopausal women and men age 50 or older with low bonemass and a 10 year probability of a major osteoporosis related fracture = or greater than 20% or a 10 year probability of a hip fracture = or greaterthan 3% should be considered for pharmacological treatment for the preventionof osteoporosis. For further information, including treatment recommendations, please referto the 2019 ISCD Official Positions (http://www.iscd.org) and the NOF's Clinician's Guide to Prevention and Treatment of Osteoporosis (http://www.nof.org/professionals/clinical-guidelines) THIS IS AN ELECTRONICALLY VERIFIED FINAL REPORT 10/22/2024 1:41 PM - Electronically signed by Lisa Ocampo M.D. TW: TW Report ID: [id number] Reading Location: [place] [address] Lorrie Treviño MD IMG DXA PROCEDURES F inal Result * [id number], Tumor Marker (10/18/2024 1:51 PM CDT) [facility] alpha Fetoprotein 2.2 <=8.3 ng/mL Comment: Interpretive [...] 2018;57:783-797 Ray Henderson et al. Clin Chem 2014;2939-3096. Current interpretive data was last revised 2021. Blood 10/18/2024 1:51 PM CDT 10/18/2024 2:24 PM CDT Lorrie Treviño MD LAB BLOOD ORDERABLES Final Result [facility] [place] [address] * TSH (10/18/2024 1:51 PM CDT) Thyroid Stimulating Hormone 2.12 0.30 - 4.20 mcIUnit/mL Blood 10/18/2024 1:51 PM CDT 10/18/2024 2:24 PM CDT us Lorrie Treviño MD LAB BLOOD ORDERABLES Final Result [facility] [place] [address] * US Liver W Complete Doppler (C) [...] Biopsy) 09/27/2024 8:20 AM CDT Narrative PATHOLOGY [facility] ([facility]) - 10/02/2024 9:34 PM CDT EPIC results best viewed via link to PDF [facility] Department of Pathology [address] [place] [address] Note to Patients: This report may contain [...] questions and explain the details. Final Report with Addendum Patient Name: LINDA GAUTAM [address]: [address] [place] [address] Gender: M : 1955 (Age: 69) Service: Surgery Location: [facility] Hospital #: [id number] Patient Type: [facility] Taken: 09/27/2024 Received: 09/27/2024 Accessioned: 09/27/2024 Reported: 10/02/2024 Physician(s):Haresh Álvarez M.D. Diagnosis: J. Prostate, left medial mid, needle biopsy: - Adenocarcinoma, [place] grade 3 + 4 (score = 7), grade group 2, 25% pattern 4, involving 1 of 1 tissue core, 5 linear mm, 33% of tissue. L. Prostate, left medial apex, needle biopsy: - Adenocarcinoma, [place] grade 3 + 4 (score = 7), [...] Out By Antoinette Neff M.D. 10/02/2024 21:34:36 Procedure/Addenda: Archive Tissue Molecular Test Addendum Comment A request for Molecular Archival Tissue Testing was received, which is to be performed on tissue from the attached case. The associated original pathology report, slides, and blocks were retrieved from archives. The pathologist (whose signature appears below) reviewed the original pathology report, examined the H&E slides, and selected the appropriate block for the specifications of the ordered Decipher molecular analysis. Materials were forwarded to [facility] where the testing will be performed. Note: Refer to scanned physician request. Skyler Arriaga MDReport Electronically Reviewed and Signed Out By Skyler Arriaga MD 11/20/2024 14:32:51 Specimen(s) Received: A: Right lateral base B: [...] prostate biopsies each show foci of adenocarcinoma, [place] patterns 3 and 4. The diagnosis of [...] determined by the Surgical Pathology Department at [facility] as part of an ongoing clinical quality manager program and in compliance with federally mandated [...] characteristics determined by the Surgical Pathology Department [facility]. It has not been cleared or approved by the U. S. Food and Drug Administration. Note for decalcified specimens: This assay has not been validated on decalcified tissues. Results should be interpreted with caution given the possibility of false negativity on decalcified specimens us Haresh Álvarez MD LAB PATHOLOGY ORDERA BLES Final Result [facility]OLOGY [facility] ([place] [facility]) [address] [place] [address] * [place] AN ELECTIVE ENDOTRACHEAL AIRWAY (09/27/2024 8:33 AM CDT) Narrative Gabrielle Bolaños CRNA - 09/27/2024 8:33 AM CDT Gabrielle Bolaños CRNA 09/27/2024 8:33 AM Airway Patient location: OR Urgency: elective Indications for airway management: anesthesia and airway protection Difficult airway: no Staff: Placed by: PERFORMING ARTS ROAD MANAGER: Gabrielle Bolaños CRNA Emergent airway documentation: Risks [...] with: silk tape Number of attempts: 1 us Gino Osborn DO ANESTHESIA ORDERABL ES Final Result * ECG 12 lead (09/27/2024 7:37 AM CDT) 09/27/2024 7:37 AM CDT Narrative [facility] - 09/27/2024 2:25 PM CDT Vent Rate: 56 bpm RR Interval: 1065 msec [place] Interval: 159 msec QRS Duration: 106 msec QT Interval: 470 msec QTC Interval: 461 msec P-R-T [place]: 55 - -48 - 8 degrees IMPRESSION: SINUS BRADYCARDIA WITH OCCASIONAL VENTRICULAR PREMATURE COMPLEXES PATTERN CONSISTENT WITH PULMONARY DISEASE LEFT ANTERIOR FASCICULAR BLOCK [QRS AXIS <= -45, QR IN I, RS IN II] PROLONGED QT INTERVAL ABNORMAL ECG Electronically Signed By: Baltazar Marmolejo MD us Gino Osborn DO ECG ORDERABLES Fin al Result [facility] from Last 3 Months Insurance MEDICARE [employer] [place] [employer] [place] MEDICARE [facility] Care Teams Otr Truck Driver Relationship Specialty Start Date End Date Roz Montiel MD [address] [id number] PCP - General Internal Medicine 10/20/23 Edgardo Tran MD PhD [address] [place] [address] Radiation Oncologist Radiation Oncology 11/15/24 Haresh Á[place]varez [place] [address] [place] [address] Consulting Physician Urology 11/15/24
--- OUTSIDE RECORDS SUMMARY | 2024-12-11 13:03 | XMS_ITS | Clinical Summary ---
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 Gender Identity Not on file Sexual Orientation Not on file Last Filed Vital Signs Vital Sign Reading Time Taken Comments Blood Pressure 120/66 04/21/2022 12:50 PM FINISH PAINTER Pulse 60 04/21/2022 12:50 PM FINISH PAINTER Temperature 36.4 C (97.5 F) 04/21/2022 12:50 PM FINISH PAINTER Respiratory Rate 19 04/21/2022 12:50 PM FINISH PAINTER Oxygen Saturation 99% 04/21/2022 12:50 PM FINISH PAINTER Inhaled Oxygen Concentration - - Weight 90.7 kg (200 lb) 04/21/2022 12:50 PM FINISH PAINTER Height 172.7 cm (5' 8) 04/21/2022 12:50 PM FINISH PAINTER Body Mass Index 30.41 04/21/2022 12:50 PM FINISH PAINTER Plan of Treatment Not on file [facility] Care Teams Software Product Manager Relationship Specialty Start Date End Date Olga Sheppard MD [address] [place] [phone] PCP - General Family Medicine 04/21/22
--- OUTSIDE RECORDS SUMMARY | 2024-12-11 13:03 | XMS_ITS | Clinical Summary ---
Author Organization [facility] Address [address] [place] [address] Care Team Providers Care Administrative Assistant Name Role Phone Douglas Francois MD Primary Care Provider [phone] Source Comments [facility],non-owned Affiliates and Associated Physician Practices is amultiple site organization consisting of ambulatory clinics and hospital sitesin [place], [place], [place] and [place]. This disclosure is being madepursuant to the Care Everywhere program and may not contain all information available regarding this patient. 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 Gender Identity Not on file Sexual Orientation [...] patient's age to complete this topic Insurance [facility] SELF PAY NO INSURANCE Member Subscriber Plan / Payer (Ef fective for All Dates) Name:Linda Gautam Member ID:Not on file Relation to Subscriber:Not on file Name:LINDA GAUTAM Subscriber ID:Not on file (Home) Address: [address] [place] [id number] Payer ID:Not on file Group ID:Not on file Type:Self Pay Address: [place], [place] Care Teams Administrative Assistant Relationship Specialty Start Date End Date Douglas Francois MD [address] [place] [address] PCP - General 04/06/13
--- OUTSIDE RECORDS SUMMARY | 2024-12-11 13:03 | XMS_ITS | Encounter Summary ---
Author Organization [facility] Address [address] [place] [address] Phone Care Team Providers Care Soap Boiler Name Role Phone Roz Montiel MD Primary Care Provide r Edgardo Tran MD PhD Unavailable [phone] Haresh Álvarez MD Unavailable [phone] Encounter Details Date Type Department Care Team (Late st Contact Info) Description 10/22/2024 Results Follow-Up [facility] [address] [facility] 2nd Floor [address] [place] [address] Lorrie Treviño MD [address] [place] [address] Dexa Axial Skeleton Bone Density 1 or 2 Site Social History Tobacco Use Types Packs/Day Years [...] on file 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
--- OUTSIDE RECORDS SUMMARY | 2024-12-11 13:03 | XMS_ITS | Encounter Summary ---
Author Organization [facility] Address [address] [place] [address] Phone Care Team Providers Care Air Traffic Supervisor Name Role Phone Roz Montiel MD Primary Care Provide r Edgardo Tran MD PhD Unavailable Haresh Álvarez MD Unavailable [phone] Encounter Details Date Type Department Care Team (Late st Contact Info) Description 06/28/2024 Orders Only [facility] Scanning, Provider Social History Tobacco Use Types Packs/Day Years Used Date Smoking Tobacco: Never Smokeless Tobacco: Never Sex and Gender Information Value Date Recorded Sex Assigned at Not on file 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 Gender Identity Not on file Sexual Orientation Not on file documented as of this encounter Plan of Treatment Not on file documented as of this encounter Procedures Procedure Name Priority Date/Time Associated Diagnosis Comments GI - RESULT 06/28/2024 documented in this encounter Results * GI - RESULT (06/28/2024) Anatomical Region Laterality Modality Other us Provider Scanning Edited Result - Final documented in this encounter Visit Diagnoses Not on filedocumented in this encounter Care Teams Air Traffic Supervisor Relationship Specialty Start Date End Date Roz Montiel MD [address] [facility] [address] [place] [address] PCP - General Internal Medicine 10/20/23 Edgardo Tran MD PhD [address] [place] [address] Radiation Oncologist Radiation Oncology 11/15/24 Haresh Á[place]varez [place] [id number] [place] [id number] Consulting Physician Urology 11/15/24 documented as of this encounter
--- OUTSIDE RECORDS SUMMARY | 2024-12-11 13:04 | XMS_ITS | Clinical Summary ---
Author Organization [facility] Address [address] [place] [address] Care Team Providers Care Curbing Stonecutter Name Role Phone Unavailable Primary Care Provider [...] Date Type Department Care Team Description 12/11/2024 11:00 AM CDT Office Visit 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 Orders Only [facility] [address] [place] [id number] Semaj Gaona MD Other secondary thrombocytopenia (Primary Dx) 12/04/2024 External Device Data ST[facility] ABSTRACTION Provider, Abstract 10/30/2024 External Device Data ST[facility] ABSTRACTION Provider, Abstract 10/23/2024 External Device Data [facility] ABSTRACTION Provider, Abstract from Last 3 Months Family History Medical [...] 3.2 oz) 12/11/2024 11:20 AM CDT Height 172.7 cm (5' 8) 06/12/2024 11:29 AM CDT Body Mass Index 32.57 06/12/2024 11:29 AM CDT Plan of Treatment Upcoming Encounters Date Type Department Care Team (Late st Contact Info) Description 11/13/2025 11:00 AM CDT Office Visit [facility] [place] [address] [facility] [address] [place] [address] Semaj Gaona MD [address] [facility] [address] [place] [address] Health Maintenance Due Date Last Done Comments Pre-Diabetes and Diabetes Screening 1955 DTAP/TDAP/TD VACCINES (1 - Tdap) 01/13/1975 PNEUMOCOCCAL VACCINE 50+ YEA RS (1 of 2 - PCV) 01/13/1975 COLORECTAL SCREENING 01/13/2001 Colorectal Cancer Screening 01/13/2001 FIT-DNA Q 3 years 01/13/2001 FIT/FOBT Q 1 year 01/13/2001 Flex Sig/CT Colonography Q 5 years 01/13/2001 RSV VACCINE (60+ or ) (1 - Risk 50-74 years 1-dose series) 01/13/2006 Preventative Visit- Commercial 02/15/2024 INFLUENZA VACCINE (#1) 2024 ZOSTER VACCINE Completed 02/22/2019, 09/21/2018 Insurance BLUE ACCESS/TRUE BLUE PPO
[2024-12-11 16:23] LABS: Alanine Aminotransferase 22 U/L (6-50); Albumin Level 4.0 g/dL (3.5-5.1); Alkaline Phosphatase 96 U/L (38-126); Anion Gap 6 mmol/L (4-12); Aspartate Amino Transferase 51 U/L (17-59); Bilirubin,Total 0.6 mg/dL (0.2-1.3); Blood Urea Nitrogen 19 mg/dL (9-20); Calcium 9.0 mg/dL (8.4-10.2); Carbon Dioxide 28 mmol/L (22-30); Chloride 106 mmol/L (98-107); Estimated Glomerular Filt Rate 60; Glucose 86 mg/dL (65-110); Potassium 4.1 mmol/L (3.4-5.0); Sodium 140 mmol/L (137-145); Total Protein 7.3 g/dL (6.3-8.2)
== END 2024-12-11 11:05 | disposition home or self-care (01) ==
LOC: ANHLAB 11:05
PROVIDERS: PCP Internal Medicine; Visit Provider Internal Medicine Hematology & Oncology
DX: D69.59 Other secondary thrombocytopenia (principal)
CPT/HCPCS: 36415; 80047; 80053; 85025; 85055